=== PATIENT | male | born 1940 | race African-American/Black ===

== ENCOUNTER 2016-09-10 12:58 | Inpatient (IN) | payer OTHER, MEDICARE ==
[2016-09-10] VITALS (9 sets, daily range): BP systolic 129–180; BP diastolic 64–88; PULSE 68–106; RESP 16–18; TEMP 97.6–98.1; O2SAT 97–100
[~2016-09-10] VITALS: Ht 177.8 cm; Wt 100.0 kg
[~2016-09-10 12:58] MED LIST: ADVAI250I INH; ALBU1AER INH; COZA100T PO; GABA300C3 PO; INSU100V2 SQ; METF850T PO; METO25 PO; PRED20 PO; TERA10CA3 PO; ZOCO40TA PO
--- NOTE | 2016-09-10 13:35 | PD ---
HPI Chief Complaint: Neuro Symptoms/ Deficits Time Seen by Provider: 13:35 Travel History International Travel<30 days: No Contact w/Intl Traveler<30days: No Traveled to known affect area: No History of Present Illness HPI 76-year-old male presents to the emergency department for evaluation of left leg weakness that started this morning upon awakening. He also states that he had left leg weakness 3 days ago as well, but resolved on its own. He denies any headache or visual changes. He denies any neck pain or back pain. He denies any chest pain. Reports chronic shortness of breath for over 3 months. He is currently seeing his director sales support, Dr. Mills for this. He denies any abdominal pain. No vomiting. Patient states he has trouble angulated contusion left leg weakness. He denies he lost sensation. Patient has a history of COPD, hypertension, hyperlipidemia, diabetes. He denies any history of CVA or TIA. PFSH Past Medical History Arthritis: No Asthma: Yes Autoimmune Disease: No Anxiety: No Depression: No Heart Rhythm Problems: No Cancer: No Cardiovascular Problems: No High Cholesterol: Yes Chest Pain: No Congestive Heart Failure: No COPD: No Cerebrovascular Accident: No Diabetes: Yes Endocrine: Yes GERD: No Hepatitis: No Hiatal Hernia: No Hypertension: Yes Immune Disorder: No Kidney Stones: No Musculoskeletal: Yes (ARTHRITIS, S/P LUMBAR SX) Neurologic: Yes (neuropathy bilateral hands ) Psychiatric: No Reproductive: No Respiratory: Yes Migraines: No Renal Failure: No Seizures: No Sickle Cell Disease: No Sleep Apnea: No Thyroid Disease: No Ulcer: No PNEUMOCCOCAL Vaccine (Year): 1 Past Surgical History Abdominal Surgery: Yes (CHOLECYSTECTOMY) AICD: No Body Medical Devices: PENILE PUMP Cardiac Surgery: No Cholecystectomy: Yes Ear Surgery: No Endocrine Surgery: No Eye Surgery: No Genitourinary Surgery: Yes (PENILE PUMP IMPL.) Gynecologic Surgery: No Joint Replacement: No Neurologic Surgery: Yes (KYPHOPLASTY (?)) Oral Surgery: No Pacemaker: No Thoracic Surgery: No Other Surgery: Yes Social History Alcohol Use: No Tobacco Use: No Substance Use: No Allergies-Medications (Allergen,Severity, Reaction): Coded Allergies: No Known Allergies (Verified , 09/10/16) Reported Meds & Prescriptions Reported Meds & Active Scripts Active Reported Zocor (Simvastatin) 40 Mg Tab 40 Mg PO DAILY Terazosin (Terazosin HCl) 10 Mg Cap 10 Mg PO HS Proair Hfa 8.5 GM Inh (Albuterol Sulfate) 90 Mcg/Act Aer 1 Puff INH Q4H PRN 108 mcg/actuation Metoprolol Tartrate 25 Mg Tab 25 Mg PO BID Metformin (Metformin HCl) 850 Mg Tab 850 Mg PO TIDPC With meals Losartan (Losartan Potassium) 100 Mg Tab 100 Mg PO DAILY Humulin R Inj (Insulin Human Regular) 1,000 Unit/10 Ml Vial 1 Units SQ ONCE Gabapentin 300 Mg Cap 300 Mg PO HS Aspirin 81 Mg Tabdr 81 Mg PO DAILY Advair Diskus Inh (Fluticasone-Salmeterol Inh) 100-50 Mcg/Blist Aer 1 Puff INH BID Rinse mouth after use. Review of Systems Except as stated in HPI: all other systems reviewed are Neg Physical Exam Narrative GENERAL: Well-developed well-nourished elderly male patient, afebrile. Gait is unsteady. SKIN: Warm and dry. HEAD: Normocephalic. Atraumatic. EYES: No scleral icterus. No injection or drainage. PERRLA. EOMI intact. ENT: Mucosa pink and moist. No erythema or exudates. No uvular edema. No uvular , palatal, or tonsillar deviation. Airway patent. Nasal turbinates appear normal without nasal blood, purulent drainage or septal hematoma. Bilateral tympanic membranes are clear without erythema or perforation. NECK: Supple, trachea midline. No JVD or lymphadenopathy. CARDIOVASCULAR: Regular rate and rhythm without murmurs, gallops, or rubs. RESPIRATORY: Breath sounds equal bilaterally. No accessory muscle use. Lungs sounds are clear to auscultation. GASTROINTESTINAL: Abdomen soft, non-tender, nondistended. MUSCULOSKELETAL: No cyanosis, or edema. Bilateral upper extremity strength 5/ 5. Left lower external strength 4/5, right lower ward with strength 5/5. All extremities are neurovascularly intact. BACK: Nontender without obvious deformity. No CVA tenderness. No midline spinal tenderness. NEUROLOGICAL: Awake and alert. Cranial nerves II through XII intact. Motor and sensory grossly within normal limits. Five out of 5 muscle strength in all muscle groups. Normal speech. Data Data Last Documented VS Vital Signs Date Time Temp Pulse Resp B/P Pulse Ox O2 Delivery O2 Flow Rate FiO2 09/10/16 13:48 148/65 100 09/10/16 13:39 89 16 Room Air 09/10/16 13:00 97.9 Orders Electrocardiogram (09/10/16 13:32) Complete Blood Count With Diff (09/10/16 13:32) Comprehensive Metabolic Panel (09/10/16 13:32) Ckmb (Isoenzyme) Profile (09/10/16 13:32) Troponin I (09/10/16 13:32) Act Partial Throm Time (Ptt) (09/10/16 13:32) Prothrombin Time / Inr (Pt) (09/10/16 13:32) Urinalysis - C+S If Indicated (09/10/16 13:32) Ct Brain W/O Iv Contrast(Rout) (09/10/16 13:32) Ecg Monitoring (09/10/16 13:32) Iv Access Insert/Monitor (09/10/16 13:32) Oximetry (09/10/16 13:32) Sodium Chloride 0.9% Flush (Ns Flush) (09/10/16 13:45) CKMB (09/10/16 14:20) CKMB% (09/10/16 14:20) Labs Laboratory Tests Test 09/10/16 09/10/16 14:20 14:40 White Blood Count 8.0 TH/MM3 Red Blood Count 4.07 MIL/MM3 Hemoglobin 11.0 GM/DL Hematocrit 33.8 % Mean Corpuscular Volume 83.1 FL Mean Corpuscular Hemoglobin 27.1 PG Mean Corpuscular Hemoglobin 32.6 % Concent Red Cell Distribution Width 16.2 % Platelet Count 212 TH/MM3 Mean Platelet Volume 8.9 FL Neutrophils (%) (Auto) 70.6 % Lymphocytes (%) (Auto) 15.2 % Monocytes (%) (Auto) 9.7 % Eosinophils (%) (Auto) 3.8 % Basophils (%) (Auto) 0.7 % Neutrophils # (Auto) 5.7 TH/MM3 Lymphocytes # (Auto) 1.2 TH/MM3 Monocytes # (Auto) 0.8 TH/MM3 Eosinophils # (Auto) 0.3 TH/MM3 Basophils # (Auto) 0.1 TH/MM3 CBC Comment DIFF FINAL Differential Comment Prothrombin Time 10.7 SEC Prothromb Time International 1.0 RATIO Ratio Activated Partial 24.9 SEC Thromboplast Time Sodium Level 138 MEQ/L Potassium Level 4.0 MEQ/L Chloride Level 101 MEQ/L Carbon Dioxide Level 26.4 MEQ/L Anion Gap 11 MEQ/L Blood Urea Nitrogen 14 MG/DL Creatinine 1.59 MG/DL Estimat Glomerular Filtration 51 ML/MIN Rate Random Glucose 148 MG/DL Calcium Level 8.6 MG/DL Total Bilirubin 0.7 MG/DL Aspartate Amino Transf 22 U/L (AST/SGOT) Alanine Aminotransferase 33 U/L (ALT/SGPT) Alkaline Phosphatase 66 U/L Total Creatine Kinase 764 U/L Creatine Kinase MB 9.7 NG/ML Creatine Kinase MB % 1.3 % Troponin I 0.02 NG/ML Total Protein 7.2 GM/DL Albumin 3.5 GM/DL Urine Color YELLOW Urine Turbidity CLEAR Urine pH 5.0 Urine Specific [place] 1.014 Urine Protein NEG mg/dL Urine Glucose (UA) NEG mg/dL Urine Ketones NEG mg/dL Urine Occult Blood NEG Urine Nitrite NEG Urine Bilirubin NEG Urine Urobilinogen LESS THAN 2.0 MG/DL Urine Leukocyte Esterase NEG Urine RBC LESS THAN 1 /hpf Urine WBC 1 /hpf Urine Hyaline Casts 6 /lpf Urine Mucus FEW /lpf Microscopic Urinalysis Comment CULT NOT INDICATED MDM Medical Decision Making Medical Screen Exam Complete: Yes Emergency Medical Condition: Yes Medical Record Reviewed: Yes Interpretation(s) Last Impressions Head CT 09/10/16 1332 Signed Impressions: Service Date/Time: Saturday, September 10, 2016 13:57 - CONCLUSION: Sinus mucosal disease. Minimal periventricular white matter disease. Jackson Gipson MD Differential Diagnosis TIA versus CVA versus electrolyte abnormality versus ACS versus cardiac arrhythmia Narrative Course 76-year-old male presents to the emergency department for evaluation of left leg weakness that started this morning. He states it was present upon awakening. He also had a 3 days ago which resolved on its own. EKG is ordered and pending. CT of the brain is ordered and pending. CBC, CMP, CK, troponin, PTT, PT/INR, UA are ordered and pending. EKG shows SR, HR 83. CT of the brain shows Sinus mucosal disease. Minimal periventricular white matter disease. CBC shows no acute abnormalities. CMP is of a creatinine a 1.59, glucose 148. CK is 764, CK MB is 9.7. Troponin is 0.02. Coags show no acute abnormality. UA shows no evidence of acute infection. [facility] is paged for admission. Dr. Nichole accepted admission. Diagnosis Primary Impression: TIA (transient ischemic attack) Qualified Code: G45.9 - Transient cerebral ischemia, unspecified type Admitting Information Admitting Physician Requests: Dolly Cary Sep 10, 2016 13:35
--- NOTE | 2016-09-10 13:41 | PD ---
Data Data Last Documented VS Vital Signs Date Time Temp Pulse Resp B/P Pulse Ox O2 Delivery O2 Flow Rate FiO2 09/10/16 13:00 97.9 106 18 129/64 97 Room Air Orders Electrocardiogram (09/10/16 13:32) Complete Blood Count With Diff (09/10/16 13:32) Comprehensive Metabolic Panel (09/10/16 13:32) Ckmb (Isoenzyme) Profile (09/10/16 13:32) Troponin I (09/10/16 13:32) Act Partial Throm Time (Ptt) (09/10/16 13:32) Prothrombin Time / Inr (Pt) (09/10/16 13:32) Urinalysis - C+S If Indicated (09/10/16 13:32) Ct Brain W/O Iv Contrast(Rout) (09/10/16 13:32) Ecg Monitoring (09/10/16 13:32) Iv Access Insert/Monitor (09/10/16 13:32) Oximetry (09/10/16 13:32) Sodium Chloride 0.9% Flush (Ns Flush) (09/10/16 13:45) MDM Supervised Visit with NIK: Yes Narrative Course I, Dr. Segundo, have reviewed the advance practice practioner's documentation and am in agreement, met with the patient face to face, made the diagnosis, and the medical decision making was done by me. *My assessment and Findings: Pleasant 76-year-old male with history of HTN, HLD , DM here with complaint of left leg weakness. Patient had an episode approximately one week ago for one hour or less of left leg weakness that resolved spontaneously. Patient woke up this morning with left-sided leg weakness. He has not had any other neurologic symptoms, word-finding difficulties, speech, etc. Denies a history of CVA or TIA. On examination cranial nerves intact. Strength of bilateral upper, is a right lower extremity intact. Left lower extremity is weak, he is able lift this off the bed area there is no drift, but he is unsteady and slightly ataxic with the left leg. Distal sensation and pulses are intact. Speech is intact. Highly suspicious for TIA versus CVA. Less likely peripheral neuropathy, left to light abnormality. Will obtain EKG, laboratory workup, CT of the brain and admit for TIA versus CVA workup. Rosetta Segundo MD Sep 10, 2016 13:40
[2016-09-10] MEDS ORDERED: SODIUM CHLORIDE 0.9% FLUSH 5 ML FLUSH IVF PRN ×2 (13:45→16:00)
--- NOTE | 2016-09-10 14:04 | RADRPT ---
EXAM DATE/TIME: 09/10/2016 13:57 [facility] COMPARISON: No previous studies available for comparison. INDICATIONS : Weakness. RADIATION DOSE: 47.34 CTDIvol (mGy) MEDICAL HISTORY : Hypertension. Neuropathy. SURGICAL HISTORY : Kyphoplasty. ENCOUNTER: Initial ACUITY: 3 days PAIN SCALE: 0/10 LOCATION: cranial TECHNIQUE: Multiple contiguous axial images were obtained of the head. Using automated exposure control and adj ustment of the mA and/or kV according to patient size, radiation dose was kept as low as reasonably a chievable to obtain optimal diagnostic quality images. FINDINGS: No hemorrhage, acute infarct, or mass. Left vertebral artery and bilateral internal carotid artery ca lcifications are noted. There is mild periventricular white matter disease. Ethmoid air cell opacific ation and mucosal thickening in the maxillary sinuses are identified. No fractures. CONCLUSION: Sinus mucosal disease. Minimal periventricular white matter disease. Jackson Gipson MD on September 10, 2016 at 14:02 Board Certified Radiologist. This report was verified electronically.
[2016-09-10 14:43] LABS: AUTOMATED NEUTROPHIL # 5.7 TH/MM3 (1.8-7.7); BASOPHIL # 0.1 TH/MM3 (0-0.2); BASOPHIL % 0.7 % (0.0-2.0); EOSINOPHIL # 0.3 TH/MM3 (0-0.4); EOSINOPHIL % 3.8 % (0.0-4.0); HEMATOCRIT 33.8 % (39.0-51.0); HEMO FLAGS DIFF FINAL; LYMPH % 15.2 % (9.0-44.0); LYMPHOCYTE # 1.2 TH/MM3 (1.0-4.8); MEAN CELL VOLUME 83.1 FL (80.0-100.0); MEAN CORPUSCULAR HEMOGLOBIN 27.1 PG (27.0-34.0); MEAN CORPUSCULAR HGB CONC 32.6 % (32.0-36.0); MONO % 9.7 % (0.0-8.0); NEUT % 70.6 % (16.0-70.0); PLATELET COUNT 212 TH/MM3 (150-450); RED BLOOD COUNT 4.07 MIL/MM3 (4.50-5.90); RED CELL DISTRIBUTION WIDTH 16.2 % (11.6-17.2)
[2016-09-10 14:53] LABS: APTT (PATIENT) 24.9 SEC (24.3-30.1); PROTHROMBIN TIME - PATIENT 10.7 SEC (9.8-11.6)
[2016-09-10 15:07] LABS: ANION GAP 11 MEQ/L (5-15); AST (GOT) 22 U/L (15-37); BICARBONATE 26.4 MEQ/L (21.0-32.0); BLOOD UREA NITROGEN 14 MG/DL (7-18); CHLORIDE 101 MEQ/L (98-107); GLOMERULAR FILTRATION RATE 51 ML/MIN (>89); SODIUM (NA) 138 MEQ/L (136-145)
[2016-09-10 15:12] LABS: ALKALINE PHOSPHATASE 66 U/L (45-117); ALT (GPT) 33 U/L (12-78); CREATINE KINASE 764 U/L (39-308); TOTAL BILIRUBIN ADULT 0.7 MG/DL (0.2-1.0)
[2016-09-10 15:19] LABS: BLOOD, URINE NEG (NEG); COMMENT (UR) CULT NOT INDICATED; CULTURE IF INDICATED CULT NOT INDICATED; GLUCOSE,URINE NEG (NEG); HYALINE CAST, URINE 6 /lpf (RARE); KETONE, URINE NEG (NEG); MUCUS URINE FEW /lpf (OCC); NITRITE,URINE NEG (NEG); URINE COLOR YELLOW (YELLW/STRAW)
[2016-09-10 15:24] LABS: CKMB 9.7 NG/ML (0.5-3.6)
[2016-09-10] MEDS ORDERED: ALBUAER3 INH (15:39)
[2016-09-10] MEDS ORDERED: ZOCO40TA PO (15:39)
[2016-09-10] MEDS ORDERED: METO25TA3 PO (15:39)
[2016-09-10] MEDS ORDERED: GABA300C5 PO (15:39)
[2016-09-10] MEDS ORDERED: INSU100V2 SQ (15:39)
[2016-09-10] MEDS ORDERED: ADVA100A INH (15:39)
[2016-09-10] MEDS ORDERED: METF850T PO (15:39)
[2016-09-10] MEDS ORDERED: LOSA100T PO (15:39)
[2016-09-10] MEDS ORDERED: TERA10CA3 PO (15:39)
[2016-09-10] MEDS ORDERED: ASPI1TAB69 PO (15:39)
[2016-09-10] MEDS ORDERED: DEXTROSE 50% IN WATER 50 ML VIAL(D50) IV PUSH PRN (16:00)
[2016-09-10] MEDS: INSULIN ASPART SUPPLEMENTAL SCALE SQ SCH ×2 (16:00→21:48)
[2016-09-10] MEDS ORDERED: GLUCAGON 1 MG/ML VIAL IM/SQ PRN (16:00)
--- NOTE | 2016-09-10 17:43 | HHI.HP ---
[facility] Primary Care Physician Venu Burgos MD Admission Diagnosis TIA Diagnoses: Chief Complaint: Left lower extremity weakness Travel History International Travel<30 Days: No Contact w/Intl Traveler <30 Da: No Traveled to Known Affected Are: No History of Present Illness This is a pleasant gentleman with a past medical history which includes hypertension, hyperlipidemia, diabetes mellitus on insulin and pills, asthma/COPD, erectile dysfunction status post penile implant and bilateral lower extremity neuropathy. Patient presents to the emergency department for left lower extremity weakness. Patient reports 2 days ago after driving to [employer] and back he got out of his car and noted his left leg was weakness. He walked around for a, "little while," (unable to give exact time) and the weakness resolved with movement. Patient woke up this morning with left lower extremity weakness he was able to get himself dressed ready then went to voodoo. After sitting at voodoo noticed the weakness was worse. Patient had to have assistance to ambulate. Therefore, patient came to the emergency department for further evaluation and treatment. Patient reports that as he has been laying in the stretcher moving his leg the weakness is decreasing. Although on exam left lower extremity is 4 out of 5 and the right lower extremity 5 out of 5 in strength. Patient denies visual changes headaches facial asymmetry upper extremity weakness slurred speech palpitations chest pain and nausea vomiting diarrhea constipation fevers or chills. Review of Systems Other All other systems reviewed and negative except as mentioned in history of present illness. Past Family Social History Past Medical History hypertension, hyperlipidemia, diabetes mellitus on insulin and pills, asthma/ COPD, erectile dysfunction and bilateral lower extremity neuropathy Past Surgical History Lumbar disc fusion, cholecystectomy, penile implant, hip replacement Reported Medications Zocor (Simvastatin) 40 Mg Tab 40 Mg PO DAILY Terazosin (Terazosin HCl) 10 Mg Cap 10 Mg PO HS Proair Hfa 8.5 GM Inh (Albuterol Sulfate) 90 Mcg/Act Aer 1 Puff INH Q4H PRN 108 mcg/actuation Metoprolol Tartrate 25 Mg Tab 25 Mg PO BID Metformin (Metformin HCl) 850 Mg Tab 850 Mg PO TIDPC With meals Losartan (Losartan Potassium) 100 Mg Tab 100 Mg PO DAILY Humulin R Inj (Insulin Human Regular) 1,000 Unit/10 Ml Vial 1 Units SQ ONCE Gabapentin 300 Mg Cap 300 Mg PO HS Aspirin 81 Mg Tabdr 81 Mg PO DAILY Advair Diskus Inh (Fluticasone-Salmeterol Inh) 100-50 Mcg/Blist Aer 1 Puff INH BID Rinse mouth after use. Allergies: Coded Allergies: No Known Allergies (Verified , 09/10/16) Active Ordered Medications Current Medications Medications (Trade) Dose Ordered Sig/Guillermo Route Start Time Stop Time Status Last Admin (NS Flush) 2 ml BID IVF 09/10/16 21:00 (NS Flush) 2 ml UNSCH PRN IVF 09/10/16 16:00 (Aspirin Chew) 81 mg DAILY PO 09/11/16 09:00 (D50w (Vial) Inj) 25 ml UNSCH PRN IV PUSH 09/10/16 16:00 (Glucagon Inj) 1 mg UNSCH PRN IM/SQ 09/10/16 16:00 Family History Both mother and father had heart disease also had a brother with had ND Social History Denies EtOH use tobacco use or illicit drug use Physical Exam Vital Signs Vital Signs Date Time Temp Pulse Resp B/P Pulse Ox O2 Delivery O2 Flow Rate FiO2 09/10/16 16:12 85 18 138/64 99 09/10/16 13:48 148/65 100 09/10/16 13:39 89 16 148/65 100 Room Air 09/10/16 13:00 97.9 106 18 129/64 97 Room Air Physical Exam GENERAL: This is a well-nourished, well-developed patient, in no apparent distress. SKIN: No rashes, ecchymoses or lesions. Cool and dry. HEAD: Atraumatic. Normocephalic. No temporal or scalp tenderness. EYES: Pupils equal round and reactive. Extraocular motions intact. No scleral icterus. No injection or drainage. ENT: Nose without bleeding, purulent drainage or septal hematoma. Throat without erythema, tonsillar hypertrophy or exudate. Uvula midline. Airway patent. NECK: Trachea midline. No JVD or lymphadenopathy. Supple, nontender, no meningeal signs. CARDIOVASCULAR: Regular rate and rhythm without murmurs, gallops, or rubs. RESPIRATORY: Clear to auscultation. Breath sounds equal bilaterally. No wheezes , rales, or rhonchi. GASTROINTESTINAL: Abdomen large soft, non-tender. No guarding. MUSCULOSKELETAL: Extremities without clubbing, cyanosis, or edema. No joint tenderness, effusion, or edema noted. No calf tenderness. Negative Homans sign bilaterally. NEUROLOGICAL: Awake and alert. Motor and sensory grossly within normal limits, with the exception of left lower extremity. Five out of 5 muscle strength in all muscle groups, with the exception of left lower extremity which is 4 out of 5 muscle strength. Normal speech. Laboratory Laboratory Tests Test 09/10/16 09/10/16 14:20 14:40 White Blood Count 8.0 Red Blood Count 4.07 Hemoglobin 11.0 Hematocrit 33.8 Mean Corpuscular Volume 83.1 Mean Corpuscular Hemoglobin 27.1 Mean Corpuscular Hemoglobin 32.6 Concent Red Cell Distribution Width 16.2 Platelet Count 212 Mean Platelet Volume 8.9 Neutrophils (%) (Auto) 70.6 Lymphocytes (%) (Auto) 15.2 Monocytes (%) (Auto) 9.7 Eosinophils (%) (Auto) 3.8 Basophils (%) (Auto) 0.7 Neutrophils # (Auto) 5.7 Lymphocytes # (Auto) 1.2 Monocytes # (Auto) 0.8 Eosinophils # (Auto) 0.3 Basophils # (Auto) 0.1 CBC Comment DIFF FINAL Differential Comment Prothrombin Time 10.7 Prothromb Time International 1.0 Ratio Activated Partial 24.9 Thromboplast Time Sodium Level 138 Potassium Level 4.0 Chloride Level 101 Carbon Dioxide Level 26.4 Anion Gap 11 Blood Urea Nitrogen 14 Creatinine 1.59 Estimat Glomerular Filtration 51 Rate Random Glucose 148 Calcium Level 8.6 Total Bilirubin 0.7 Aspartate Amino Transf 22 (AST/SGOT) Alanine Aminotransferase 33 (ALT/SGPT) Alkaline Phosphatase 66 Total Creatine Kinase 764 Creatine Kinase MB 9.7 Creatine Kinase MB % 1.3 Troponin I 0.02 Total Protein 7.2 Albumin 3.5 Urine Color YELLOW Urine Turbidity CLEAR Urine pH 5.[address] 1.014 Urine Protein NEG Urine Glucose (UA) NEG Urine Ketones NEG Urine Occult Blood NEG Urine Nitrite NEG Urine Bilirubin NEG Urine Urobilinogen LESS THAN 2.0 Urine Leukocyte Esterase NEG Urine RBC LESS THAN 1 Urine WBC 1 Urine Hyaline Casts 6 Urine Mucus FEW Microscopic Urinalysis Comment CULT NOT INDICATED Result Diagram: 09/10/16 1420 09/10/16 1420 Imaging Last Impressions Head CT 09/10/16 1332 Signed Impressions: Service Date/Time: Saturday, September 10, 2016 13:57 - CONCLUSION: Sinus mucosal disease. Minimal periventricular white matter disease. Jackson Gipson MD Assessment and Plan Assessment and Plan This is a pleasant gentleman with a past medical history which includes hypertension, hyperlipidemia, diabetes mellitus on insulin and pills, asthma/COPD, erectile dysfunction and bilateral lower extremity neuropathy. Patient presents to the emergency department for left lower extremity weakness. Focal deficit left lower extremity weakness rule out TIA/lacunar CVA CT of the head reviewed by myself as well as Dr. Nichole no acute findings- sinus mucosal disease minimal periventricular white matter disease MRI ordered and pending, ultrasound bilateral carotid arteries pending Patient had outpatient 2-D echocardiogram scheduled this coming Sunday Physical therapy Continuous telemetry monitoring Consult neurology Aspirin 81 mg daily continue Zocor Allow permissive hypertension Diabetes mellitus hold metformin Accu-Cheks before meals at bedtime with low-dose sliding scale insulin coverage Hypertension- continue metoprolol 25 mg BID and Terazosin 10mg daily, but will hold losartan in light of elevated creatinine Acute kidney injury - creatinine 1.59 baseline around 1.0-1.2 Elevated CK at 764 Hold losartan Encouraged by mouth fluid intake Recheck in a.m. Hyperlipidemia continue Zocor Asthma last COPD continue Symbicort and add duo nebs as needed for shortness of breath/wheezing DVT prophylaxis with SCDs Discussed with patient daughter is at bedside, RN and ER provider Written by Rosey Major, acting as scribe for Dr. Nichole on 09/10/16 at 17: 42. The documentation accurately reflects the work performed [id number] by , Benton Nichole D.O on 09/10/16 at 17:42. Physician Certification 2 Midnight Certification Type: Admission for Inpatient Services Order for Inpatient Services The services are ordered in accordance with Medicare regulations or non- Medicare payer requirements, as applicable. In the case of services not specified as inpatient-only, they are appropriately provided as inpatient services in accordance with the 2-midnight benchmark. Estimated LOS (days): 3 days is the estimated time the patient will need to remain in the hospital, assuming treatment plan goals are met and no additional complications. Post-Hospital Plan: Home Rosey Major Sep 10, 2016 17:43 Екатерина Nichole DO Sep 10, 2016 22:48
--- NOTE | 2016-09-10 19:51 | RADRPT ---
EXAM DATE/TIME: 09/10/2016 18:34 [facility] COMPARISON: No previous studies available for comparison. INDICATIONS : Transient ischemic attack. MEDICAL HISTORY : Hypercholesterolemia. Hypertension. Neuropathy. Asthma. Erectile dysfunction. Arthritis. Diabetes. SURGICAL HISTORY : Cholecystectomy. Kyphoplasty. Penile pump implant. Hip surgery. Hand surgery. ENCOUNTER: Initial ACUITY: 1 day PAIN SCORE: 0/10 LOCATION: Bilateral neck PEAK SYSTOLIC VELOCITIES (cm/sec): ICA/CCA RATIO: Right: 0.7 Left: 0.8 ICA: Right: 89 Left: 92 CCA: Right: 127 Left: 115 ECA: Right: 112 Left: 89 VERTEBRAL: Right: 62 antegrade Left: 102 antegrade Elevated flow velocities and ICA/CCA ratios have been found to correlate with increased degrees of vessel stenosis, calculated as percentage of diameter relative to a normal segment of distal ICA/CCA FINDINGS: RIGHT CAROTID: Trace plaque seen of the bulb and proximal internal carotid artery. LEFT CAROTID: Mild plaque seen in the bulb and proximal internal carotid artery. VERTEBRAL ARTERIES: Antegrade flow is seen in both vertebral arteries. MISCELLANEOUS: None. CONCLUSION: Bilateral bifurcation atherosclerotic plaque, trace on the right and mild on the left. No hemodynamic ally significant narrowing on either side. Geovanny Ramirez MD on September 10, 2016 at 19:48 Board Certified Radiologist. This report was verified electronically.
[2016-09-10] MEDS ORDERED: TERAZOSIN HCL 5 MG CAP PO SCH (21:00)
[2016-09-10] MEDS ORDERED: GABAPENTIN 300 MG CAP PO SCH (21:00)
[2016-09-10] MEDS: BUDESONIDE-FORMOTEROL 80/4.5 MCG INHALER INH SCH (21:31)
[2016-09-10] MEDS: METOPROLOL TARTRATE 25 MG TAB PO SCH (21:31)
[2016-09-10] MEDS: SODIUM CHLORIDE 0.9% FLUSH 5 ML FLUSH IVF SCH (21:31)
--- NOTE | 2016-09-10 22:02 | MB ---
cc: TE LEMUS MD DATE OF CONSULTATION 09/10/2016 REASON FOR CONSULTATION Left lower extremity weakness. HISTORY OF PRESENT ILLNESS A 76-year-old -Wel[place] male with past medical history of hypertension, hyperlipidemia, diabetes mellitus on insulin and oral hypoglycemic agents, asthma, COPD, erectile dysfunction status post penile implant and bilateral lower extremity neuropathy. The patient presents to the emergency department at [facility] the main hospital for left lower extremity weakness that he reports started two days ago after driving to [place] sitting for two hours in a car. He thought that he had left weakness when he got out of the car, he walked around and then in two hours he thought the weakness had resolved, and he denies any weakness in the left upper extremity, the left side of the face, slurred speech, disorientation, numbness or tingling of the left lower extremity. This morning he woke up with left lower extremity weakness as well similar to the previous episode. He was able to get himself dressed and went to [facility] and after sitting in [place] he noted that the weakness was worse. He denies any numbness or tingling in the left lower extremity. He denies any upper extremity weakness, facial droop or difficulty in speech. Until the time when I examined him and I assessed him he still thinks that he has weakness and it is not back to normal. The patient is on aspirin 81 mg daily. REVIEW OF SYSTEMS A 12-point review of systems is negative except for what is stated in the HPI. PAST MEDICAL HISTORY 1. Hypertension. 2. Hyperlipidemia. 3. Diabetes mellitus. 4. Asthma. 5. Chronic obstructive pulmonary disease. 6. Erectile dysfunction. 7. Peripheral neuropathy. PAST SURGICAL HISTORY 1. Lumbar disc diffusion. 2. Cholecystectomy. 3. Penile implant. 4. Hip replacement. MEDICATIONS 1. Zocor. 2. Terazosin. 3. ProAir. 4. Metoprolol. 5. Metformin. 6. Losartan. 7. Humulin insulin. 8. Gabapentin. 9. Aspirin 81. 10. Advair Diskus. ALLERGIES NO KNOWN ALLERGIES. FAMILY HISTORY Mother and father had heart disease but denies any history of stroke. SOCIAL HISTORY Denies ethanol use, tobacco or recreational drug abuse. PHYSICAL EXAMINATION GENERAL: Well-nourished, well-developed in no apparent distress. Good historian. HEENT: Atraumatic, normocephalic. Intact vision, intact hearing. NECK: Supple. No lymphadenopathy. Nontender. No carotid bruit. CARDIOVASCULAR: Regular rate and rhythm without murmurs. LUNGS: Clear to auscultation with no wheezes. MUSCULOSKELETAL: Extremities without cyanosis, clubbing or edema. Able to move all extremities. NEUROLOGICAL: Awake, alert, oriented to time, person and place. Intact memory. Normal speech. Normal speech content. Cranial nerves II-XII are grossly intact. Motor system examination 5/5 bilateral, symmetrical throughout, bilateral upper extremities, right lower extremity 5/5. Left lower extremity 5-/5 left hip flexion and left foot dorsiflexion. Cerebellar function intact bilateral and symmetrical. LABORATORY DATA White blood cells 8.0, hemoglobin 11, MCV 83.1, platelets 212. INR 1.0. Sodium 138, potassium 4.0, chloride 101, anion gap 11, BUN 14, creatinine 1.59, glucose 148, calcium 8.6, AST 22, ALT 33. Total creatinine kinase 764. Alkaline phosphatase 66. Troponin 0.02.Albumin 3.5. IMAGING - Head CT scan minimal periventricular white matter disease. DIAGNOSTIC IMPRESSION 1. Transient ischemic attack versus ischemic stroke. 2. Questionable lumbar radiculopathy left, less likely, given no history of radicular pain, however, will pursue the following tests. PLAN 1. Neuro checks q.4h. 2. Continue aspirin 81 milligrams. 3. MRI brain without contrast. 4. Carotid ultrasound. 5. Echo. 6. Telemetry. 7. Deep venous thrombosis prophylaxis. 8. Gastrointestinal prophylaxis. 9. Lumbar spine MRI without contrast. Thank you for the opportunity to participate in the care of your patient. MD PHAN Hernandez/NIALL /5:48 PM /9:47 PM EDYTA
[2016-09-11 03:47] VITALS: BP 132/76; PULSE 61; RESP 16; TEMP 98.3; O2SAT 100
[2016-09-11 05:08] LABS: HDL CHOLESTEROL 57.4 MG/DL (40.0-60.0)
[2016-09-11] MEDS: INSULIN ASPART SUPPLEMENTAL SCALE SQ SCH ×3 (06:09→16:00)
[2016-09-11 07:15] VITALS: BP 147/81; PULSE 67; RESP 18; TEMP 97.6; O2SAT 100
[2016-09-11 08:00] VITALS: PULSE 60
[2016-09-11] MEDS ORDERED: LORazepam 2 MG/ML VIAL IV PUSH ONE (08:30)
--- NOTE | 2016-09-11 08:46 | HHI.PR ---
Subjective Remarks Follow-up for left lower extremity weakness. Patient is currently doing well. He reports improvement of his left lower extremity weakness. Denies any chest pain, shortness of breath, fever or chills. Waiting for MRI brain this morning. Objective Vitals Vital Signs Date Time Temp Pulse Resp B/P Pulse Ox O2 Delivery O2 Flow Rate FiO2 09/11/16 07:15 97.6 67 18 147/81 100 09/11/16 03:47 98.3 61 16 132/76 100 09/10/16 23:40 98.1 71 16 156/73 100 09/10/16 21:28 97.7 73 16 175/84 98 09/10/16 20:00 68 09/10/16 19:33 97.6 71 16 180/82 100 09/10/16 19:01 89 16 154/88 97 Room Air 09/10/16 16:12 85 18 138/64 99 09/10/16 13:48 148/65 100 09/10/16 13:39 89 16 148/65 100 Room Air 09/10/16 13:00 97.9 106 18 129/64 97 Room Air I/O 09/10/16 09/10/16 09/10/16 09/11/16 09/11/16 09/11/16 06:59 14:59 22:59 06:59 14:59 22:59 Intake Total 360 ml Balance 360 ml Intake Oral 360 ml # Voids 1 Result Diagram: 09/10/16 1420 09/10/16 1420 Imaging Last Impressions Head CT 09/10/16 1332 Signed Impressions: Service Date/Time: Saturday, September 10, 2016 13:57 - CONCLUSION: Sinus mucosal disease. Minimal periventricular white matter disease. Jackson Gipson MD Carotid Artery Ultrasound 09/10/16 0000 Signed Impressions: Service Date/Time: Saturday, September 10, 2016 18:34 - CONCLUSION: Bilateral bifurcation atherosclerotic plaque, trace on the right and mild on the left. No hemodynamically significant narrowing on either side. Geovanny Ramirez MD Objective Remarks GENERAL: Alert, oriented 3, NAD SKIN: Warm and dry. HEAD: Normocephalic. EYES: No scleral icterus. No injection or drainage. NECK: Supple, trachea midline. No JVD or lymphadenopathy. CARDIOVASCULAR: Regular rate and rhythm without murmurs, gallops, or rubs. RESPIRATORY: Breath sounds equal bilaterally. No accessory muscle use. GASTROINTESTINAL: Abdomen soft, non-tender, nondistended. MUSCULOSKELETAL: No cyanosis, or edema. BACK: Nontender without obvious deformity. No CVA tenderness. Procedures None. A/P Assessment and Plan This is a pleasant 76 year old gentleman with a past medical history which includes hypertension, hyperlipidemia, diabetes mellitus on insulin and pills, asthma/COPD, erectile dysfunction and bilateral lower extremity neuropathy. Patient presents to the emergency department for left lower extremity weakness. left lower extremity weakness rule out TIA/lacunar CVA CT of the head reviewed by myself as well as Dr. Nichole on 09/10/2016 no acute findings- sinus mucosal disease minimal periventricular white matter disease MRI ordered and pending, ultrasound bilateral carotid arteries show no significant findings. Patient had outpatient 2-D echocardiogram scheduled on 09/13/2016. In patient Echo ordered. However, if MRI is negative, we might discharge patient home and have the echo done outpatient. Physical therapy Continuous telemetry monitoring Consult neurology Aspirin 81 mg daily continue Zocor Diabetes mellitus hold metformin Accu-Cheks before meals at bedtime with low-dose sliding scale insulin coverage Hypertension- continue metoprolol 25 mg BID and Terazosin 10mg daily, but will hold losartan in light of elevated creatinine Hyperlipidemia - total cholesterol 119, LDL 41 HDL 57.4. Continue statin Acute kidney injury - creatinine 1.59 baseline around 1.0-1.2 Elevated CK at 764 Hold losartan Encouraged by mouth fluid intake BMP pending this AM. Asthma last COPD continue Symbicort and add duo nebs as needed for shortness of breath/wheezing Full code. SCDs. Potential discharge this afternoon after MRI is done. Екатерина Nichole DO Sep 11, 2016 8:46 am
[2016-09-11] MEDS: SODIUM CHLORIDE 0.9% FLUSH 5 ML FLUSH IVF SCH (09:00)
[2016-09-11] MEDS ORDERED: PRAVASTATIN SOD 80 MG TAB PO SCH (09:00)
[2016-09-11] MEDS ORDERED: ASPIRIN 81 MG CHEW TAB PO SCH (09:00)
--- NOTE | 2016-09-11 10:40 | RADRPT ---
EXAM DATE/TIME: 09/11/2016 10:11 [facility] COMPARISON: CT BRAIN W/O CONTRAST, September 10, 2016, 13:57. INDICATIONS : Left leg weakness. MEDICAL HISTORY : Hypertension. Diabetes mellitus type 2. SURGICAL HISTORY : Fusion, lumbar. Cholecystectomy. Carpal tunnel syndrome. hip replacement, penile implant, elbow ENCOUNTER: Subsequent ACUITY: 2 day PAIN SCORE: 0/10 LOCATION: cranial TECHNIQUE: Multiplanar, multisequence MRI of the brain was performed without contrast. FINDINGS: There is a focal area of restricted diffusion in the right basal ganglia in the expected location of the posterior limb right internal capsule. This is characteristic of an acute infarct. There is sligh t increased corresponding flair signal. There is diffuse atrophy and mild periventricular white matte r disease, chronic. There are no signs of hemorrhage. There is circumferential mucosal thickening and secretions in the bilateral maxillary sinuses, and ethmoid air cell mucosal disease. CONCLUSION: Acute infarct right internal capsule. Jackson Gipson MD on September 11, 2016 at 10:38 Board Certified Radiologist. This report was verified electronically.
[2016-09-11] MEDS: METOPROLOL TARTRATE 25 MG TAB PO SCH (10:52)
--- NOTE | 2016-09-11 10:52 | RADRPT ---
EXAM DATE/TIME: 09/11/2016 10:11 [facility] COMPARISON: No previous studies available for comparison. INDICATIONS : Left leg weakness. MEDICAL HISTORY : Hypertension. Diabetes mellitus type 2. SURGICAL HISTORY : Fusion, lumbar. Cholecystectomy. Carpal tunnel syndrome. lt hip replacment, penile implant, elbow ENCOUNTER: Subsequent ACUITY: 2 day PAIN SCORE: 0/10 LOCATION: back TECHNIQUE: Multiplanar multisequence MRI of the lumbar spine was performed without contrast. FINDINGS: The most caudal appearing lumbar vertebra is numbered as L5. The conus is unremarkable. There is diff use disc desiccation. Moderate disc space narrowing at multiple anterior osteophyte formation. L4-5 a nd L5-S1. Left sided posterior micaela and transpedicular screw fixation at L5-S1. Severe bilateral tal inal stenosis. T12-L1: The thecal sac has a normal diameter. No evidence of disc bulge or protrusion. The neural foramina are patent bilaterally. L1-L2: The thecal sac has a normal diameter. No evidence of disc bulge or protrusion. The neural foramina are patent bilaterally. L2-L3: The thecal sac has a normal diameter. No evidence of disc bulge or protrusion. The neural foramina are patent bilaterally. Mild facet and ligamentum flavum hypertrophy. L3-L4: Diffuse disc bulge greatest in the left foraminal and lateral region with mild mass effect on the lef t L3 exiting nerve and L4 nerve roots at the left lateral recess. Mild abutment of the right L3 exiti ng nerve. Moderate facet and ligamentum flavum hypertrophy. Mild right, moderate left foraminal steno sis. L4-L5: Diffuse disc bulge and osteophyte formation with moderate canal stenosis. There is mass effect on the L4 exiting nerves with severe bilateral foraminal stenosis. There is likely impingement on the L5 ne rve roots. L5-S1: This is a postsurgical level. There is no canal stenosis however moderate facet arthropathy and diffu se disc bulging noted with abutment of the L5 exiting nerves seen. Severe bilateral foraminal stenosi s. CONCLUSION: Multilevel degenerative changes are noted as described above greatest at L4-5 and L5-S1. Jackson Gipson MD on September 11, 2016 at 10:47 Board Certified Radiologist. This report was verified electronically.
[2016-09-11] MEDS: BUDESONIDE-FORMOTEROL 80/4.5 MCG INHALER INH SCH (10:53)
[2016-09-11 11:38] VITALS: BP 161/75; PULSE 63; TEMP 96.4; O2SAT 99
[2016-09-11 12:43] LABS: BICARBONATE 28.7 MEQ/L (21.0-32.0)
--- NOTE | 2016-09-11 14:44 | HHI.PR ---
Review/Management Diagnosis Ischemic basal ganglia infarction Likely etiology secondary to long standing hypertension and diabetes Pending ECHO result Plan Neurochecks Q4h Increased Aspirin to 325mg daily, starting 09/12/2016 Tight BP and glycemic control PT/OT, recommendations are appreciated Stable neurologic exam Follow up as outpatient DVT prophylaxis GI Prophylaxis Diagnosis/Plan: Subjective Subjective Comments No acute events reported Patient with no new complaints Mild gradual improvement in the left LE strength MRI revealed a right basal ganglia lacunar stroke CUS with no significant stenosis Active Medications Current Medications Medications (Trade) Dose Ordered Sig/Guillermo Route Start Time Stop Time Status Last Admin (NS Flush) 2 ml BID IVF 09/10/16 21:00 09/10/16 21:31 (NS Flush) 2 ml UNSCH PRN IVF 09/10/16 16:00 (Aspirin Chew) 81 mg DAILY PO 09/11/16 09:00 09/11/16 10:52 (D50w (Vial) Inj) 25 ml UNSCH PRN IV PUSH 09/10/16 16:00 (Glucagon Inj) 1 mg UNSCH PRN IM/SQ 09/10/16 16:00 (Neurontin) 300 mg HS PO 09/10/16 21:00 09/10/16 21:31 (Lopressor) 25 mg BID PO 09/10/16 21:00 09/11/16 10:52 (Hytrin) 10 mg HS PO 09/10/16 21:00 09/10/16 21:31 (Symbicort 80-4.5 Mcg Inh) 1 puff BID INH 09/10/16 21:00 09/11/16 10:53 (Pravachol) 80 mg DAILY PO 09/11/16 09:00 09/11/16 10:52 Allergies Allergies Coded Allergies No Known Allergies (Verified09/10/16) Exam I&O / VS 09/10/16 09/10/16 09/11/16 14:59 22:59 06:59 Intake Total 360 ml Balance 360 ml Intake Oral 360 ml # Voids 1 Vital Signs Date Time Temp Pulse Resp B/P Pulse Ox O2 Delivery O2 Flow Rate FiO2 09/11/16 11:38 96.4 63 161/75 99 09/11/16 07:15 97.6 67 18 147/81 100 09/11/16 03:47 98.3 61 16 132/76 100 09/10/16 23:40 98.1 71 16 156/73 100 09/10/16 21:28 97.7 73 16 175/84 98 09/10/16 20:00 68 09/10/16 19:33 97.6 71 16 180/82 100 09/10/16 19:01 89 16 154/88 97 Room Air 09/10/16 16:12 85 18 138/64 99 Exam Comments GENERAL: Well-nourished, well-developed in no apparent distress. Good historian. HEENT: Atraumatic, normocephalic. Intact vision, intact hearing. NECK: Supple. No lymphadenopathy. Nontender. No carotid bruit. CARDIOVASCULAR: Regular rate and rhythm without murmurs. LUNGS: Clear to auscultation with no wheezes. MUSCULOSKELETAL: Extremities without cyanosis, clubbing or edema. Able to move all extremities. NEUROLOGICAL: Awake, alert, oriented to time, person and place. Intact memory. Normal speech. Normal speech content. Cranial nerves II-XII are grossly intact. Motor system examination 5/5 bilateral, symmetrical throughout, bilateral upper extremities, right lower extremity 5/5. Left lower extremity 5-/5 left hip flexion and left foot dorsiflexion. Cerebellar function intact bilateral and symmetrical. Objective Radiology Results Last [address] 09/10/16 1332 Signed Impressions: Service Date/Time: Saturday, September 10, 2016 13:57 - CONCLUSION: Sinus mucosal disease. Minimal periventricular white matter disease. Jackson Gipson MD Carotid Artery Ultrasound 09/10/16 0000 Signed Impressions: Service Date/Time: Saturday, September 10, 2016 18:34 - CONCLUSION: Bilateral bifurcation atherosclerotic plaque, trace on the right and mild on the left. No hemodynamically significant narrowing on either side. Geovanny Ramirez MD Micro and Labs Laboratory Tests Test 09/10/16 09/11/16 09/11/16 14:40 04:05 11:40 Urine Color YELLOW Urine Turbidity CLEAR Urine pH 5.0 Urine Specific Lipan 1.014 Urine Protein NEG Urine Glucose (UA) NEG Urine Ketones NEG Urine Occult Blood NEG Urine Nitrite NEG Urine Bilirubin NEG Urine Urobilinogen LESS THAN 2.0 Urine Leukocyte Esterase NEG Urine RBC LESS THAN 1 Urine WBC 1 Urine Hyaline Casts 6 Urine Mucus FEW Microscopic Urinalysis Comment CULT NOT INDICATED Triglycerides Level 101 Cholesterol Level 119 LDL Cholesterol 41 HDL Cholesterol 57.4 Cholesterol/HDL Ratio 2.07 Sodium Level 136 Potassium Level 4.0 Chloride Level 100 Carbon Dioxide Level 28.7 Anion Gap 7 Blood Urea Nitrogen 14 Creatinine 1.30 Estimat Glomerular Filtration 65 Rate Random Glucose 225 Calcium Level 8.5 Ashlyn French MD Sep 11, 2016 14:44
[2016-09-11 15:20] VITALS: BP 134/74; PULSE 60; RESP 20; TEMP 98.4; O2SAT 98
[2016-09-11] MEDS ORDERED: ASPI325T PO (15:45)
--- NOTE | 2016-09-11 17:13 | EC ---
Study Study Date:09/11/2016 STUDY CONCLUSIONS SUMMARY - Left ventricle: The cavity size was normal. Wall thickness was normal. Systolic function was normal. The estimated ejection fraction was in the range of 55% to 60%. Wall motion was normal; there were no regional wall motion abnormalities. Doppler parameters are consistent with abnormal left ventricular relaxation (grade 1 diastolic dysfunction). - Aortic valve: Valve area: 1.2cm^2(VTI). Valve area: 1.19cm^2 (Vmax). - Right atrium: The atrium was mildly dilated. - Tricuspid valve: Mild regurgitation. If LV function is below 40, please consider prescribing an ACEI or ARB or document rationale for non-use. PROCEDURE DATA STUDY STATUS: Elective. Procedure: Transthoracic echocardiography. Image quality was good. Scanning was performed from the parasternal, apical, and subcostal acoustic windows. Study completion: The patient tolerated the procedure well. Transthoracic echocardiography. M-mode, complete 2D, complete spectral Doppler, and color Doppler. Height: Height: 70in. Weight: Weight: 219.5lb. Body mass index: BMI: 31.6kg/m^2. Body surface area: BSA: 2.17m^2. Patient status: Inpatient. CARDIAC ANATOMY LEFT VENTRICLE: The cavity size was normal. Wall thickness was normal. Systolic function was normal. The estimated ejection fraction was in the range of 55% to 60%. Wall motion was normal; there were no regional wall motion abnormalities. Doppler parameters are consistent with abnormal left ventricular relaxation (grade 1 diastolic dysfunction). AORTIC VALVE: Trileaflet; normal thickness leaflets. Doppler: Transvalvular velocity was within the normal range. There was no stenosis. No regurgitation. Valve area: 1.2cm^2(VTI). Indexed valve area: 0.55cm^2/m^2 (VTI). Valve area: 1.19cm^2 (Vmax). Indexed valve area: 0.55cm^2/m^2 (Vmax). Mean gradient: 3mm Hg (S). AORTA: Aortic root: The aortic root was normal in size. MITRAL VALVE: Structurally normal valve. Doppler: Transvalvular velocity was within the normal range. There was no evidence for stenosis. Trace regurgitation. LEFT ATRIUM: The atrium was normal in size. RIGHT VENTRICLE: The cavity size was normal. Wall thickness was normal. PULMONIC VALVE: Doppler: Transvalvular velocity was within the normal range. There was no evidence for stenosis. No regurgitation. TRICUSPID VALVE: Structurally normal valve. Doppler: Transvalvular velocity was within the normal range. Mild regurgitation. PULMONARY ARTERY: The main pulmonary artery was normal-sized. Systolic pressure was within the normal range. RIGHT ATRIUM: The atrium was mildly dilated. PERICARDIUM: There was no pericardial effusion. SYSTEMIC VEINS: Inferior vena cava: The vessel was normal in size. Patient weight: 219.5lb _Ejection fraction:_ 65-75% _Fractional shortening:_ 32% up to 5Kg 5-11.5Kg 11.6-22.9Kg 23-45Kg 45-57Kg Aortic Root 7-13 <17 13-22 17-27 17-27 LA diam 6-13 <23 24-38 33-47 37-40 RVID 10-17 7-15 7-15 7-18 8-17 LVIDd 12-22 <32 24-38 33-47 37-40 LVPW 2-4 3-6 5-7 6-8 7-8 IVS 2-4 3-6 5-7 6-8 7-8 BASIC MEASUREMENTS ADULT NORMAL Left ventricle LV internal dimension, ED, chordal *35.9 mm 43-52 level, PLAX LV internal dimension, ES, chordal 26.1 mm 23-38 level, PLAX Fractional shortening, chordal level, *27 % >29 PLAX LV posterior wall thickness, ED 15 mm IVS/LVPW ratio, ED 1 <1.3 Ventricular septum Septal thickness, ED 15 mm Aortic valve Leaflet separation 18 mm 15-26 Aorta Root diameter, ED 33 mm Left atrium Anterior-posterior dimension 32 mm Anterior-posterior dimension index 1.47 cm/m^2 <2.2 Right ventricle RV internal dimension, ED, PLAX *39.2 mm 19-38 BASIC MEASUREMENTS ADULT NORMAL Aortic valve Leaflet separation 18 mm 15-26 DOPPLER MEASUREMENTS ADULT NORMAL Aortic valve Peak velocity, S 121 cm/s Mean velocity, S 86.6 cm/s VTI, S 22.8 cm Mean gradient, S 3 mm Hg Valve area, VTI 1.2 cm^2 Valve area index, VTI 0.55 cm^2/m^2 Valve area, Vmax 1.19 cm^2 Valve area index, Vmax 0.55 cm^2/m^2 Mitral valve Peak E-wave velocity 66.6 cm/s Peak A-wave velocity 95.8 cm/s Deceleration time *236 ms 150-230 Peak E/A ratio 0.7 Tricuspid valve Regurgitant peak velocity 301 cm/s Peak RV-RA gradient, S 36 mm Hg Maximal regurgitant velocity 301 cm/s Pulmonic valve Peak velocity, S 73.5 cm/s LEGEND: Mean values are shown as u=mean value. Asterisk (*) ren values outside specified normal range. Prepared and signed by Logan Tam [id number]
[2016-09-11 17:30] LABS: HEMOGLOBIN A1a 1.2 %; HEMOGLOBIN Ao 83.5 %; HEMOGLOBIN P3 3.7 %
--- NOTE | 2016-09-11 18:35 | EKG ---
Date Performed: 09/10/2016 Time Performed: 14:17:56 PTAGE: 76 years EKG: Sinus rhythm WITH FIRST DEGREE AV BLOCK NONSPECIFIC T-WAVE ABNORMALITY Since previous tracing, no significant suman nge noted ABNORMAL ECG PREVIOUS TRACING : 06/02/2016 15.47 DOCTOR: Gloria Mandujano Interpretating Date/Time 09/11/2016 18:34:37
[2016-09-12] MEDS ORDERED: ASPIRIN 325 MG TAB PO SCH (09:00)
== END 2016-09-11 17:59 | disposition home or self-care (01) | DRG 65 ==
LOC: NEPC 12:58 → NEDA 15:58 → OBSVTOIN 16:47 → NEPGCP 19:19
PROVIDERS: ADMIT Hospitalist; ATTEND Hospitalist
DX: I63.9 Cerebral infarction, unspecified (principal); N17.9 Acute kidney failure, unspecified; J44.9 Chronic obstructive pulmonary disease, unspecified; E11.42 Type 2 diabetes mellitus with diabetic polyneuropathy; I10 Essential (primary) hypertension; E78.5 Hyperlipidemia, unspecified; J45.909 Unspecified asthma, uncomplicated; Z79.4 Long term (current) use of insulin; Z79.82 Long term (current) use of aspirin
CPT/HCPCS: 70450; 70551; 72148; 80048; 80053; 80061; 81001; 82550; 82552; 82948; 83036; 84484; 85025; 85610; 85730; 93005; 93306; 93880; J1815; J2060

== ENCOUNTER 2017-10-07 19:30 | Emergency (ER) | payer MEDICARE, OTHER ==
[~2017-10-07 19:30] MED LIST changes: +ADVA100A INH; -ADVAI250I INH; -ALBU1AER INH; +ALBUAER3 INH; +ASPI-183 PO; -COZA100T PO; -GABA300C3 PO; +GABA300C5 PO; +LOSA100T PO; -METO25 PO; +METO25TA3 PO; -PRED20 PO
[2017-10-07] MEDS ORDERED: IOHEXOL 350 MG/ML 10 ML VIAL (for RAD DIAG) IVCONTRAST ONE (19:31)
[2017-10-07 19:34] VITALS: BP 229/107; PULSE 71; RESP 18; TEMP 98.1; O2SAT 98
[2017-10-07] MEDS ORDERED: NOVO7030P2 SQ ×2 (20:43)
[2017-10-07] MEDS ORDERED: FURO20TA PO (20:43)
[2017-10-07] MEDS ORDERED: CLOP75TA PO (20:43)
[2017-10-07] MEDS ORDERED: GLYC1AER INH (20:43)
[2017-10-07] MEDS ORDERED: AMLO10TA2 PO (20:43)
--- NOTE | 2017-10-07 20:48 | RADRPT ---
EXAM DATE/TIME: 10/07/2017 20:25 [facility] COMPARISON: CHEST PA & LAT, June 02, 2016, 15:21. INDICATIONS : Short of Breath MEDICAL HISTORY : Hypertension. Diabetes mellitus type 2. SURGICAL HISTORY : Fusion, lumbar. Cholecystectomy. Carpal tunnel syndrome. hip replacement, penile implant, elbow ENCOUNTER: Initial ACUITY: 1 week PAIN SCORE: 0/10 LOCATION: chest FINDINGS: PA and lateral views of the chest demonstrate the lungs to be symmetrically aerated without evidence of mass, infiltrate or effusion. The cardiomediastinal contours are unremarkable. Osseous structure s are intact. CONCLUSION: No evidence of acute cardiopulmonary disease. Geovanny Ramirez MD on October 07, 2017 at 20:45 Board Certified Radiologist. This report was verified electronically.
[2017-10-07 21:00] VITALS: BP 212/96; PULSE 62; RESP 23; O2SAT 98
[2017-10-07] MEDS ORDERED: FUROSEMIDE 40 MG/4 ML VIAL IV PUSH ONE (21:15)
[2017-10-07] MEDS ORDERED: NITROGLYCERIN 2% OINT 1 GM PACKET TOPICAL ONE (21:15)
--- NOTE | 2017-10-07 21:18 | PD ---
HPI Chief Complaint: Respiratory Distress Time Seen by Provider: 21:14 Travel History International Travel<30 days: No Contact w/Intl Traveler<30days: No Traveled to known affect area: No History of Present Illness HPI 77-year-old male patient with history of COPD, asthma, hypertension, presents to the ER with several weeks' history of leg swelling and worsening dyspnea on exertion and shortness of breath. He apparently have been treated for asthma before he went on a cruise, return from a cruise and states that he has been sleeping in the recliner because is getting so bad. He denies any chest pains, fevers, or other symptoms. Modifying Factors: None Associated Signs & Symptoms: Dyspnea on exertion, shortness of breath, leg swelling Risk Factors: None PFSH Past Medical History Arthritis: No Asthma: Yes Autoimmune Disease: No Anxiety: No Depression: No Heart Rhythm Problems: No Cancer: No Cardiovascular Problems: Yes (HTN) High Cholesterol: Yes Chest Pain: No Congestive Heart Failure: No COPD: No Diabetes: Yes (TYPE 2 METFORMIN AND NOVOLOG) Patient Takes Glucophage: Yes (10/07/17) Diminished Hearing: No Endocrine: Yes GERD: No Genitourinary: No Hepatitis: No Hiatal Hernia: No Hypertension: Yes Immune Disorder: No Implanted Vascular Access Dvce: Yes Kidney Stones: No Musculoskeletal: Yes (Arthritis, Back) Neurologic: Yes (Neuropathy ) Psychiatric: No Reproductive: No Respiratory: Yes Migraines: No Renal Failure: No Seizures: No Sickle Cell Disease: No Sleep Apnea: No Thyroid Disease: No Ulcer: No Tetanus Vaccination: < 5 Years Influenza Vaccination: No PNEUMOCCOCAL Vaccine (Year): 1 Past Surgical History Abdominal Surgery: Yes (CHOLECYSTECTOMY) AICD: No Body Medical Devices: Penile pump Cardiac Surgery: No Cholecystectomy: Yes Ear Surgery: No Endocrine Surgery: Yes (gallbladder) Eye Surgery: No Genitourinary Surgery: Yes (PENILE PUMP IMPL.) Gynecologic Surgery: No Joint Replacement: No Neurologic Surgery: Yes (KYPHOPLASTY (?)) Oral Surgery: No Pacemaker: No Thoracic Surgery: No Other Surgery: Yes (Gallbladder, Bilateral hands, Back, left hip) Social History Alcohol Use: No Tobacco Use: No Substance Use: No Allergies-Medications (Allergen,Severity, Reaction): Coded Allergies: No Known Allergies (Verified Adverse Reaction, Unknown, 10/07/17) Reported Meds & Prescriptions Reported Meds & Active Scripts Active Aspirin 325 Mg Tab 325 Mg PO DAILY 90 Days Reported Novolin 70-30 Inj (Insulin Human Isoph/Insulin Regular) 1,000 Unit/10 Ml Vial 23 Units SQ HS Novolin 70-30 Inj (Insulin Human Isoph/Insulin Regular) 1,000 Unit/10 Ml Vial 20 Units SQ AM Bevespi Aerosphere 9-4.8 Mcg/Act (Glycopyrrolate-Formoterol Fuma) 9 Mcg-4.8 Mcg Aer 2 Puff INH BID Clopidogrel (Clopidogrel Bisulfate) 75 Mg Tab 75 Mg PO DAILY Amlodipine (Amlodipine Besylate) 10 Mg Tab 10 Mg PO DAILY Furosemide 20 Mg Tab 20 Mg PO DAILY Terazosin (Terazosin HCl) 10 Mg Cap 10 Mg PO HS Proair Hfa 8.5 GM Inh (Albuterol Sulfate) 90 Mcg/Act Aer 1 Puff INH Q4H PRN 108 mcg/actuation Metoprolol Tartrate 25 Mg Tab 25 Mg PO BID Metformin (Metformin HCl) 850 Mg Tab 850 Mg PO TIDPC With meals Losartan (Losartan Potassium) 100 Mg Tab 100 Mg PO DAILY Humulin R Inj (Insulin Human Regular) 1,000 Unit/10 Ml Vial 1 Units SQ ONCE Gabapentin 300 Mg Cap 300 Mg PO HS Review of Systems Except as stated in HPI: all other systems reviewed are Neg Physical Exam Narrative GENERAL: Well-developed elderly -[place] male patient currently in mild distress. Awake and oriented 3. SKIN: Focused skin assessment warm/dry. HEAD: Atraumatic. Normocephalic. EYES: Pupils equal and round. No scleral icterus. No injection or drainage. ENT: No nasal bleeding or discharge. Mucous membranes pink and moist. NECK: Trachea midline. No JVD. CARDIOVASCULAR: Regular rate and rhythm. No murmur appreciated. RESPIRATORY: Mild accessory muscle use. Decreased throughout. Breath sounds equal bilaterally. GASTROINTESTINAL: Abdomen soft, non-tender, nondistended. Hepatic and splenic margins not palpable. MUSCULOSKELETAL: No obvious deformities. No clubbing. No cyanosis. Bilateral pitting edema of the legs. NEUROLOGICAL: Awake and alert. No obvious cranial nerve deficits. Motor grossly within normal limits. Normal speech. PSYCHIATRIC: Appropriate mood and affect; insight and judgment normal. Data Data Last Documented VS Vital Signs Date Time Temp Pulse Resp B/P (MAP) Pulse Ox O2 Delivery O2 Flow Rate FiO2 10/07/17 22:00 63 22 179/85 (116) 98 Room Air 10/07/17 19:34 98.1 Orders Orders Complete Blood Count With Diff (10/07/17 20:13) Basic Metabolic Panel (Bmp) (10/07/17 20:13) Chest, Pa & Lat (10/07/17 20:13) Blood Culture (10/07/17 20:13) Iv Access Insert/Monitor (10/07/17 20:13) Ecg Monitoring (10/07/17 20:13) Oxygen Administration (10/07/17 20:13) Oximetry (10/07/17 20:13) Electrocardiogram (10/07/17 20:13) Coag Profile (10/07/17 21:12) B-Type Natriuretic Peptide (10/07/17 21:15) D-Dimer (10/07/17 21:15) Furosemide Inj (Lasix Inj) (10/07/17 21:15) Nitroglycerin 2% Oint (Nitroglycerin 2% (10/07/17 21:15) Ct Pulmonary Angiogram (10/07/17 22:55) Us Leg Venous Doppler Bilat (10/07/17 22:55) Iohexol 350 Inj (Omnipaque 350 Inj) (10/07/17 19:31) Ed Discharge Order (10/08/17 01:43) Labs Laboratory Tests Test 10/07/17 21:05 White Blood Count 6.4 TH/MM3 Red Blood Count 4.27 MIL/MM3 Hemoglobin 12.8 GM/DL Hematocrit 38.5 % Mean Corpuscular Volume 90.1 FL Mean Corpuscular Hemoglobin 30.0 PG Mean Corpuscular Hemoglobin Concent 33.3 % Red Cell Distribution Width 14.9 % Platelet Count 219 TH/MM3 Mean Platelet Volume 8.4 FL Neutrophils (%) (Auto) 61.5 % Lymphocytes (%) (Auto) 17.1 % Monocytes (%) (Auto) 12.8 % Eosinophils (%) (Auto) 7.8 % Basophils (%) (Auto) 0.8 % Neutrophils # (Auto) 3.9 TH/MM3 Lymphocytes # (Auto) 1.1 TH/MM3 Monocytes # (Auto) 0.8 TH/MM3 Eosinophils # (Auto) 0.5 TH/MM3 Basophils # (Auto) 0.0 TH/MM3 CBC Comment DIFF FINAL Differential Comment Prothrombin Time 10.0 SEC Prothromb Time International Ratio 1.0 RATIO Activated Partial Thromboplast Time 24.1 SEC D-Dimer Quantitative (PE/DVT) 0.75 MG/L FEU Blood Urea Nitrogen 12 MG/DL Creatinine 1.35 MG/DL Random Glucose 96 MG/DL Calcium Level 8.6 MG/DL Sodium Level 140 MEQ/L Potassium Level 3.9 MEQ/L Chloride Level 107 MEQ/L Carbon Dioxide Level 28.3 MEQ/L Anion Gap 5 MEQ/L Estimat Glomerular Filtration Rate 62 ML/MIN B-Type Natriuretic Peptide 51 PG/ML MDM Medical Decision Making Medical Screen Exam Complete: Yes Emergency Medical Condition: Yes Medical Record Reviewed: Yes Interpretation(s) EKG shows NSR, no ST elevation or depression, and no arrhythmias. No significant T-wave inversions. Laboratory Tests Test 10/07/17 21:05 Red Blood Count 4.27 MIL/MM3 (4.50-5.90) Hemoglobin 12.8 GM/DL (13.0-17.0) Hematocrit 38.5 % (39.0-51.0) Monocytes (%) (Auto) 12.8 % (0.0-8.0) Eosinophils (%) (Auto) 7.8 % (0.0-4.0) Eosinophils # (Auto) 0.5 TH/MM3 (0-0.4) Activated Partial Thromboplast Time 24.1 SEC (24.3-30.1) D-Dimer Quantitative (PE/DVT) 0.75 MG/L FEU (0.00-0.50) Creatinine 1.35 MG/DL (0.60-1.30) Estimat Glomerular Filtration Rate 62 ML/MIN (>89) Last 24 hours Impressions Lower Extremity Ultrasound 10/07/172254 Signed Impressions: Service Date/Time: Saturday, October 07, 2017 23:08 - CONCLUSION: Normal examination. Avni Steen MD CT Angiography 10/07/172254 Signed Impressions: Service Date/Time: Sunday, October 08, 2017 00:06 - CONCLUSION: 1. Negative for pulmonary embolus. 2. Focal subsegmental airspace disease left lower lobe. Primary differential diagnosis is small bronchopneumonia. Avni Steen MD Chest X-Ray 10/07/172012 Signed Impressions: Service Date/Time: Saturday, October 07, 2017 20:25 - CONCLUSION: No evidence of acute cardiopulmonary disease. Geovanny Ramirez MD Differential Diagnosis Dyspnea on exertion, shortness of breath, leg swelling: Dependent edema versus CHF versus pneumonia versus COPD exacerbation Narrative Course EKG did not show any signs of significant dysrhythmias or ST changes. His blood pressure was initially fairly elevated but he came down nicely on its own in the ER. He has significant leg edema and Lasix was given in the ER with good diuresis. His oxygen saturations on room air was 98% in the ER. He is ambulatory without issues. Chest x-ray did not show any signs of acute pulmonary processes. D-dimer was elevated and CT was also ordered for the patient. Ultrasound did not show any signs of leg DVT and CTA was negative for PE. However, there was questionable mild atelectasis versus developing pneumonia on CAT scan. My plan would be to treat him as precaution. At this point, he appears to be doing well and my plan would be to release him with close follow-up to primary care physician. Return for worsening in symptoms as needed. The plan has been discussed with him and he states understanding. Diagnosis Primary Impression: SOB (shortness of breath) Additional Impressions: Hypertension Leg swelling Med/Other Pt SpecificInfo: Prescription(s) given Scripts Prednisone (Prednisone) 50 Mg Tab 50 MG PO DAILY for 3 Days, #3 TAB 0 Refills Prov: Sigrid Lee MD 10/08/17 Azithromycin (Zithromax Z-Noah) 250 Mg Dspk 250 MG PO DIRECTED for Infection, #1 DSPK 0 Refills 500 MG (2 tabs) day 1, then 1 tab days 2-5. Prov: Sigrid Lee MD 10/08/17 Furosemide (Lasix) 20 Mg Tab 20 MG PO BID, #10 TAB 0 Refills Prov: Sigrid Lee MD 10/08/17 Albuterol 8.5 GM Inh (Proair Hfa 8.5 GM Inh) 90 Mcg/Act Aer 1 PUFF INH Q4H Y for SHORTNESS OF BREATH, #1 INHALER 0 Refills 108 mcg/actuation Prov: Sigrid Lee MD 10/08/17 Disposition: 01 DISCHARGE HOME Condition: Stable Sigrid Lee MD Oct 07, 2017 21:18
[2017-10-07 21:23] LABS: AUTOMATED NEUTROPHIL # 3.9 TH/MM3 (1.8-7.7); BASOPHIL % 0.8 % (0.0-2.0); EOSINOPHIL # 0.5 TH/MM3 (0-0.4); EOSINOPHIL % 7.8 % (0.0-4.0); HEMATOCRIT 38.5 % (39.0-51.0); HEMOGLOBIN 12.8 GM/DL (13.0-17.0); LYMPH % 17.1 % (9.0-44.0); LYMPHOCYTE # 1.1 TH/MM3 (1.0-4.8); MEAN CELL VOLUME 90.1 FL (80.0-100.0); MEAN CORPUSCULAR HGB CONC 33.3 % (32.0-36.0); MEAN PLATELET VOLUME 8.4 FL (7.0-11.0); MONO % 12.8 % (0.0-8.0); MONOCYTE # 0.8 TH/MM3 (0-0.9); NEUT % 61.5 % (16.0-70.0); PLATELET COUNT 219 TH/MM3 (150-450); RED BLOOD COUNT 4.27 MIL/MM3 (4.50-5.90); RED CELL DISTRIBUTION WIDTH 14.9 % (11.6-17.2); WHITE BLOOD COUNT 6.4 TH/MM3 (4.0-11.0)
[2017-10-07 21:39] VITALS: RESP 22; O2SAT 98
[2017-10-07 21:44] LABS: BICARBONATE 28.3 MEQ/L (21.0-32.0); CALCIUM 8.6 MG/DL (8.5-10.1); CREATININE 1.35 MG/DL (0.60-1.30)
[2017-10-07 22:00] VITALS: BP 179/85; PULSE 63; RESP 22; O2SAT 98
--- NOTE | 2017-10-07 23:48 | RADRPT ---
EXAM DATE/TIME: 10/07/2017 23:08 [facility] COMPARISON: No previous studies available for comparison. INDICATIONS : Bilateral leg swelling. MEDICAL HISTORY : Hypertension. Glasses. Dentures. Transient ischemic attack. Asthma. Arthritis. SURGICAL HISTORY : Cholecystectomy. Penile implant. Bilateral hand surgery. Left hip surgery. ENCOUNTER: Initial ACUITY: 1 month PAIN SCORE: 2/10 LOCATION: Bilateral legs. TECHNIQUE: Venous ultrasound of the left and right leg was performed from the inguinal ligament to the proximal calf. Real-time, color Doppler and spectral tracing, compression and augmentation techniques were us ed. FINDINGS: RIGHT LEG: There is normal compressibility of the deep venous system from the inguinal region to the proximal ca lf. No echogenic clot is seen in the lumen of the common femoral, femoral, popliteal, and posterior tibial veins. There is a normal response of the venous system to proximal and distal augmentation an d respiration. LEFT LEG: There is normal compressibility of the deep venous system from the inguinal region to the proximal ca lf. No echogenic clot is seen in the lumen of the common femoral, femoral, popliteal, and posterior tibial veins. There is a normal response of the venous system to proximal and distal augmentation an d respiration. CONCLUSION: Normal examination. Avni Steen MD on October 07, 2017 at 23:45 Board Certified Radiologist. This report was verified electronically.
--- NOTE | 2017-10-08 00:40 | RADRPT ---
EXAM DATE/TIME: 10/08/2017 00:06 [facility] COMPARISON: No previous studies available for comparison. INDICATIONS : Shortness of breath. IV CONTRAST: 80 cc Omnipaque 350 (iohexol) IV RADIATION DOSE: 23.38 CTDIvol (mGy) MEDICAL HISTORY : Hypertension. Diabetes mellitus type 2. SURGICAL HISTORY : Cholecystectomy. Kyphoplasty. ENCOUNTER: Initial ACUITY: 1 day PAIN SCALE: 0/10 LOCATION: chest TECHNIQUE: Volumetric scanning of the chest was performed using a pulmonary embolism protocol MIP images were re constructed. Using automated exposure control and adjustment of the mA and/or kV according to patien t size, radiation dose was kept as low as reasonably achievable to obtain optimal diagnostic quality images. DICOM format image data is available electronically for review and comparison. Follow-up recommendations for detected pulmonary nodules are based at a minimum on nodule size and pa tient risk factors according to Fleischner Society Guidelines. FINDINGS: There are no filling defects to suggest pulmonary embolus. No pleural effusion. Trace pericardial flu id. There is a focal airspace disease left lower lobe measuring about 2.5 cm in diameter. This could represent a small bronchopneumonia. Right lung relatively clear. No acute findings in the upper abdom en. No adenopathy. CONCLUSION: 1. Negative for pulmonary embolus. 2. Focal subsegmental airspace disease left lower lobe. Primary differential diagnosis is small bronc hopneumonia. Avni Steen MD on October 08, 2017 at 0:35 Board Certified Radiologist. This report was verified electronically.
[2017-10-08] MEDS ORDERED: ZITHTAB PO (01:54)
[2017-10-08] MEDS ORDERED: ALBUAER3 INH (01:54)
[2017-10-08] MEDS ORDERED: FURO1TAB62 PO (01:54)
[2017-10-08] MEDS ORDERED: PRED50 PO (01:54)
[2017-10-08 02:20] VITALS: BP 147/83; PULSE 70; RESP 19; O2SAT 100
--- NOTE | 2017-10-08 18:58 | EKG ---
Date Performed: 10/07/2017 Time Performed: 20:57:48 PTAGE: 77 years EKG: Sinus rhythm WITH FIRST DEGREE AV BLOCK NONSPECIFIC T-WAVE ABNORMALITY Since previous tracing, no significant suman nge noted ABNORMAL ECG PREVIOUS TRACING : 09/10/2016 14.17 DOCTOR: Prabhakar Lauren Interpretating Date/Time 10/08/2017 18:57:33
== END 2017-10-08 02:35 | disposition home or self-care (01) ==
LOC: NEPE 19:30
DX: R06.02 Shortness of breath (principal); I10 Essential (primary) hypertension; M79.89 Other specified soft tissue disorders; E11.9 Type 2 diabetes mellitus without complications; Z79.4 Long term (current) use of insulin
CPT/HCPCS: 71046; 71275; 80048; 83880; 85025; 85379; 85610; 85730; 87040; 87205; 93005; 93970; 96374; 99285; J1940; Q9967

== ENCOUNTER → 2018-03-06 | Outpatient (CLI) | payer OTHER ==
[~2018-03-06] MED LIST changes: -ADVA100A INH; +AMLO10TA2 PO; +CLOP75TA PO; +FURO1TAB62 PO; +FURO20TA PO; +GLYC1AER INH; +NOVO7030P2 SQ; +PRED50 PO; +ZITHTAB PO; -ZOCO40TA PO
--- NOTE | 2018-03-08 07:53 | RSPPFT ---
DATE OF PROCEDURE: 03/06/18 COMMENTS: Spirometry shows FVC of 1.2 at 31% of predicted, FEV1 of 0.6 at 21%, FEV1/FVC ratio is decreased. Flow is decreased at FEF 25, FEF 50, FEF 75 and FEF 25-75. There is a good response after bronchodilator treatment. Lung volumes show residual volume is increased. TLC is decreased. Diffusion capacity, when corrected for lung volumes, is normal. Flow volume loop indicates an obstructive pattern. Room air arterial blood gases show pH of 7.42, PCO2 of 42, PO2 of 73, BiCarb of 27, O2 Saturation at 92%. IMPRESSION: 1. Severe obstructive lung disease. 2. Good response after bronchodilator treatment. 3. Additional mild restrictive lung disease. 4. Normal diffusion capacity when corrected for lung volumes. 5. Blood gases show mild hypoxia.
== END ==
LOC: HRSP 12:46
PROVIDERS: ATTEND Specialist
DX: J44.9 Chronic obstructive pulmonary disease, unspecified (principal)
CPT/HCPCS: 36600; 82805; 94060; 94726; 94729

== ENCOUNTER 2018-09-18 19:13 | Inpatient (IN) ==
[2018-09-18] MEDS ORDERED: hydrALAZINE HCl Inj 20 MG/ML Vial IV.PUSH ONE (22:34)
--- NOTE | 2018-09-18 23:13 | CT ---
EXAM DATE: 09/18/2018 11:03 PM EST AGE/SEX: 78 years / Male INDICATIONS: Dizziness. CLINICAL DATA: This is the patient's initial encounter. Patient reports that signs and symptoms have been present for 1 day and indicates a pain score of 0/10. MEDICAL/SURGICAL HISTORY: Hypertension. Diabetes. None. RADIATION DOSE: 56.35 CTDI (mGy) COMPARISON: [facility] [place], [place] BRAIN W/O CONTRAST, 09/11/2016. . TECHNIQUE: CT of the head without contrast. Using automated exposure control and adjustment of the mA and/or kV according to patient size, radiation dose was kept as low as reasonably achievable to ob tain optimal diagnostic quality images. DICOM format image data is available electronically for revi ew and comparison. FINDINGS: Cerebrum: Subtle linear high attenuation involving a solitary sulcus involving the right parietal lo be near the vertex. This is best appreciated on image 24. 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 This was seen on the prior MRI. The ventricles are normal for age. No ev idence of midline shift, mass lesion, or acute infarction. No extraaxial fluid collections are seen. Posterior Fossa: The cerebellum and brainstem are intact. The 4th ventricle is midline. The cerebe llopontine angle is unremarkable. Extracranial: The visualized portion of the orbits is intact. Mucosal thickening throughout the fron randall sinuses, ethmoid air cells, maxillary sinuses, and sphenoid sinuses bilaterally. Mastoid air cell s are clear. Skull: The calvaria is intact. No evidence of skull fracture. CONCLUSION: 1. Possible very small volume acute subarachnoid hemorrhage involving the right parietal lobe near t he vertex. 2. Chronic ramos sinus disease. . Electronically signed by: Yamil Hinkle MD Board Certified Radiologist 09/18/2018 11:12 PM EST
[2018-09-18] MEDS ORDERED: Labetalol HCl Inj 100 MG/20 ML Vial IV.PUSH ONE (23:14)
[2018-09-18] MEDS ORDERED: Labetalol HCl Inj 100 MG/20 ML Vial ONE (23:20)
[2018-09-18 23:29] LABS: Baso % (Auto) 0.6 % (0.0-2.0); Eos # (Auto) 0.5 th/mm3 (0.0-0.4); Eos % (Auto) 5.1 % (0.0-4.0); Hematocrit 37.2 % (39.0-51.0); Hemoglobin 12.2 gm/dL (13.0-17.0); Lymph # (Auto) 1.4 th/mm3 (1.0-4.8); Lymph % (Auto) 15.7 % (9.0-44.0); Mean Corpuscular Hemoglobin 29.7 pg (27.0-34.0); Mean Corpuscular Volume 90.1 fL (80.0-100.0); Mean Platelet Volume 9.6 fL (7.0-11.0); Mono # (Auto) 0.8 th/mm3 (0.0-0.9); Mono % (Auto) 9.4 % (0.0-8.0); Neut # (Auto) 6.2 th/mm3 (1.8-7.7); Neut % (Auto) 69.2 % (16.0-70.0); Platelet Count 190 th/mm3 (150-450); Red Blood Count 4.12 mil/mm3 (4.50-5.90); Red Cell Distribution Width 15.2 % (11.6-17.2)
[2018-09-18] MEDS ORDERED: Morphine Sulfate Inj 2 MG/ML Vial IV.PUSH PRN (23:36)
[2018-09-18] MEDS ORDERED: Bisacodyl 10 MG Supp RECTAL PRN (23:36)
[2018-09-18] MEDS ORDERED: Acetaminophen 325 MG Tablet PO PRN (23:36)
--- NOTE | 2018-09-18 23:36 | P.HPCC ---
History of Present Illness Primary Care Physician: UNKNOWN History of Present Illness: 78 year old male presents with a complaint of uncontrolled hypertension. The patient reports that he went to go and donate blood and he was told that he could not donate blood because his blood pressure was too high. Patient reports his blood pressures were in the 220s, reports that he has not been feeling dizzy but has been feeling "woozy in the head," reports that his head felt "dull." Patient does take multiple medications for his hypertension including amlodipine as well as losartan, he is also on antiplatelet, Plavix. Reports that he has been compliant. Patient with no chest pain or shortness of breath, no other complaints. CT of the head obtained in the emergency department shows possible very small volume acute subarachnoid hemorrhage involving the right parietal lobe near the vertex. The patient has been admitted to [facility] with a neurosurgical consultation in place. Inpatient Certification: I certify that the inpatient services were ordered in accordance with Medicare regulations governing the order. This includes certification that hospital inpatient services are reasonable and necessary and in the case of services not specified as inpatient-only under 42 CFR 419.22(n), that they are appropriately provided as inpatient services in accordance to with the 2-midnight benchmark under 43 CFR 412.3(e) Review of Systems All other systems reviewed negative except as stated in HPI PMFSH - History History Provided By: Patient - Medical History Medical History: Medical History (Last Reviewed 09/19/18 @ 00:05 by Elenita Pierre) Asthma Diabetes HTN (hypertension) - Surgical History Surgical History: Surgical History (Last Reviewed 09/19/18 @ 00:05 by Elenita Pierre) History of orthopedic surgery Hx of cholecystectomy - Tobacco History Smoking Status: Never smoker - Alcohol History How Often Do You Have a Drink Containing Alcohol: Never - Substance Use History Substance History: No History of Abuse - Travel History Recent Travel in the [place] Within the Last 8 Weeks: No Recent Travel Out of the Country Within the Last 8 Weeks: No - Immunization History Tetanus Immunization: Unsure Medications and Allergies Active Medications: Active Medications Sodium Chloride (Ns Flush) 2 ml IV.FLUSH UNSCH PRN PRN Reason: FLUSH AFTER USING IV ACCESS Allergies Allergy/AdvReac Type Severity Reaction Status Date / Time No Known Allergies Allergy Verified 09/18/18 20:08 Home Medications Medication Instructions Recorded Confirmed Type amlodipine 10 mg PO DAILY 09/18/18 09/18/18 History aspirin 09/18/18 History clopidogrel 75 mg PO DAILY 09/18/18 09/18/18 History furosemide 20 mg PO DAILY 09/18/18 09/18/18 History gabapentin 300 mg PO BID 09/18/18 09/18/18 History insulin NPH and regular human 20 unit SUBCUT BID 09/18/18 09/18/18 History [Novolin 70/30 U-100 Insulin] losartan 100 mg PO DAILY 09/18/18 09/18/18 History metformin 850 mg PO BID 09/18/18 09/18/18 History terazosin 10 mg PO DAILY 09/18/18 09/18/18 History Results - Labs CBC & Chem 7: 09/18/18 23:08 09/18/18 23:08 Labs: Short CBC 09/18/18 Range/Units 23:08 WBC 9.0 (4.0-11.0) th/mm3 Hgb 12.2 L (13.0-17.0) gm/dL Hct 37.2 L (39.0-51.0) % Plt Count 190 (150-450) th/mm3 - Imaging Impressions Head CT 09/18/18 22:33 CONCLUSION: 1. Possible very small volume acute subarachnoid hemorrhage involving the right parietal lobe near the vertex. 2. Chronic ramos sinus disease. . Exam Vital signs: Vital Signs 09/18/18 20:06 09/18/18 22:09 09/18/18 23:07 Temperature 98.5 F Pulse Rate 85 58 L 73 Respiratory Rate 14 18 Blood Pressure 191/80 H 200/91 H Pulse Oximetry 98 99 09/18/18 23:08 09/18/18 23:25 Temperature Pulse Rate 85 70 Respiratory Rate 16 16 Blood Pressure 200/91 H 228/100 H Pulse Oximetry 99 Intake & Output 09/18/18 09/18/18 09/19/18 06:59 18:59 06:59 Weight 96.615 kg - Constitutional no acute distress - Routine HEENT Exam Head: Present: normocephalic, atraumatic Eye: Present: PERRL - Routine Neck Exam Present: supple, full ROM. Absent: JVD, carotid bruit - Routine Respiratory Exam Absent: accessory muscle use, rales, rhonchi, wheezes - Routine Cardiovascular Exam Present: RRR, S1, S2 - Routine Abdominal Exam Present: soft, normoactive bowel sounds. Absent: tenderness, distended - Routine Extremities Exam Absent: cyanosis, clubbing, edema - Routine Skin Exam Present: intact. Absent: cyanosis, erythema - Routine Neurological Exam Present: alert, oriented X3, moving all extremities Septic Shock Reassessment Septic shock perfusion: reassessment completed Caprini VTE Risk Assessment Caprini VTE Risk Assessment: Moderate/High Risk (score >= 2) VTE Pharmacological Exception Reason: Hemorrhage, Intracranial lesions Caprini Risk Assessment Model: Point Value = 1 Point Value = 2 Point Value = 3 Point Value = 5 Age 41-60 Minor surgery BMI > 25 kg/m2 Swollen legs Varicose veins or History of unexplained or recurrent spontaneous Oral contraceptives or hormone replacement Sepsis (< 1 month) Serious lung disease, including pneumonia (< 1 month) Abnormal pulmonary function Acute myocardial infarction Congestive heart failure (< 1 month) History of inflammatory bowel disease Medical patient at bed rest Age 61-74 Arthroscopic surgery Major open surgery (> 45 min) Laparoscopic surgery (> 45 min) Malignancy Confined to bed (> 72 hours) Immobilizing plaster cast Central venous access Age >= 75 History of VTE Family history of VTE Factor V Leiden Prothrombin [id number] Lupus anticoagulant Anticardiolipin antibodies Elevated serum homocysteine Heparin-induced thrombocytopenia Other congenital or acquired thrombophilia Stroke (< 1 month) Elective arthroplasty Hip, pelvis, or leg fracture Acute spinal cord injury (< 1 month) Prophylaxis Regimen: Total Risk Factor Score Risk Level Prophylaxis Regimen 0-1 Low Early ambulation 2 Moderate Order ONE of the following: *Sequential Compression Device (SCD) *Heparin 5000 units SQ BID 3-4 Higher Order ONE of the following medications: *Heparin 5000 units SQ TID *Enoxaparin/Lovenox 40 mg SQ daily (WT < 150 kg, CrCl > 30 mL/min) *Enoxaparin/Lovenox 30 mg SQ daily (WT < 150 kg, CrCl > 10-29 mL/min) *Enoxaparin/Lovenox 30 mg SQ BID (WT < 150 kg, CrCl > 30 mL/min) AND/OR *Sequential Compression Device (SCD) 5 or more Highest Order ONE of the following medications: *Heparin 5000 units SQ TID (Preferred with Epidurals) *Enoxaparin/Lovenox 40 mg SQ daily (WT < 150 kg, CrCl > 30 mL/min) *Enoxaparin/Lovenox 30 mg SQ daily (WT < 150 kg, CrCl > 10-29 mL/min) *Enoxaparin/Lovenox 30 mg SQ BID (WT < 150 kg, CrCl > 30 mL/min) AND *Sequential Compression Device (SCD) Assessment and Plan - Assessment and Plan Plan: Subarachnoid bleed -Possible bleed per CT report -Admit to [facility] -Neurochecks per unit protocol -Neurosurgical consultation -Coags profile pending -Platelet count above 190 -Hold aspirin and Plavix -Repeat CT head a.m. -SBP goal less than 140 Hypertension -Nicardipine drip -SBP goal less than 140 due to possible ICH -Resume home meds Diabetes mellitus -Hold metformin while in the ICU -Insulin sliding scale History of asthma -DuoNeb's as needed DVT GI prophylaxis -Teds SCDs -No pharmacological DVT prophylaxis due to possible ICH -Pepcid 35 minutes of critical care
[2018-09-18 23:37] LABS: Calcium 8.9 mg/dL (8.5-10.1); Carbon Dioxide 31.1 meq/L (21.0-32.0); Potassium 3.9 meq/L (3.5-5.1)
[2018-09-18] MEDS ORDERED: Dextrose 50% in Water 50 ML Vial IV.PUSH PRN (23:42)
--- NOTE | 2018-09-18 23:50 | ED ---
HPI General Chief complaint: Hypertension Stated complaint: High blood pressure Time Seen by Provider: 09/18/18 22:27 Source: patient Mode of arrival: ambulatory Limitations: no limitations History of Present Illness HPI narrative: Patient is a 78 year old male who presents to the ER with c/o of hypertension. Reports that he went to go and donate blood and he was told that he could not donate blood because his blood pressure was too high. Patient reports his blood pressures were in the 220s, reports that he has not been feeling dizzy but has been feeling "woozy in the head," reports that his head felt "dull." Patient does take multiple medications for his hypertension including amlodipine as well as losartan, he is also on antiplatelet, Plavix. Reports that he has been compliant. Patient with no chest pain or shortness of breath, no other complaints. Related Data Home Medications Medication Instructions Recorded Confirmed amlodipine 10 mg PO DAILY 09/18/18 09/18/18 aspirin 09/18/18 clopidogrel 75 mg PO DAILY 09/18/18 09/18/18 furosemide 20 mg PO DAILY 09/18/18 09/18/18 gabapentin 300 mg PO BID 09/18/18 09/18/18 insulin NPH and regular human 20 unit SUBCUT BID 09/18/18 09/18/18 [Novolin 70/30 U-100 Insulin] losartan 100 mg PO DAILY 09/18/18 09/18/18 metformin 850 mg PO BID 09/18/18 09/18/18 terazosin 10 mg PO DAILY 09/18/18 09/18/18 Allergies Allergy/AdvReac Type Severity Reaction Status Date / Time No Known Allergies Allergy Verified 09/18/18 20:08 Review of Systems ROS: all other systems reviewed are negative [facility] Medical History Medical History Asthma (Acute) Diabetes (Acute) HTN (hypertension) (Acute) Surgical History Surgical History History of orthopedic surgery (Acute) Hx of cholecystectomy (Acute) Social History Social History Substance History: No History of Abuse Smoking Status: Never smoker How Often Do You Have a Drink Containing Alcohol: Never Recent Travel in [facility] within the Last 8 Weeks: No Recent Out of Country Travel within the Last 8 Weeks: No Immunization History Tetanus Immunization: Unsure Exam Narrative Exam Narrative: GENERAL: NAD SKIN: Focused skin assessment warm/dry. HEAD: Atraumatic. Normocephalic. EYES: Pupils equal and round. No scleral icterus. No injection or drainage. ENT: No nasal bleeding or discharge. Mucous membranes pink and moist. NECK: Trachea midline. No JVD. CARDIOVASCULAR: Regular rate and rhythm. No murmur appreciated. RESPIRATORY: No accessory muscle use. Clear to auscultation. Breath sounds equal bilaterally. GASTROINTESTINAL: Abdomen soft, non-tender, nondistended. Hepatic and splenic margins not palpable. MUSCULOSKELETAL: No obvious deformities. No clubbing. No cyanosis. No edema. NEUROLOGICAL: Awake and alert. No obvious cranial nerve deficits. Motor grossly within normal limits. Normal speech. PSYCHIATRIC: Appropriate mood and affect; insight and judgment normal. Course Initial Documented Vital Signs Temperature 98.5 F 09/18/18 20:06 Pulse Rate 85 09/18/18 20:06 Respiratory Rate 14 09/18/18 20:06 Blood Pressure 191/80 H 09/18/18 20:06 Pulse Oximetry 98 09/18/18 20:06 Last Documented Vital Signs Temperature 98.5 F 09/18/18 20:06 Pulse Rate 70 09/18/18 23:25 Respiratory Rate 16 09/18/18 23:25 Blood Pressure 228/100 H 09/18/18 23:25 Pulse Oximetry 99 09/18/18 23:08 Critical Care Time Critical Care Time: Yes Total Critical Care Time: 30 Attestation: Aggregate critical care time was 30 minutes. Time to perform other separately billable procedures was not included in the critical care time. My time did not include minutes spent treating any other patients simultaneously or on activities that did not directly contribute to the patient's treatment. The services I provided to this patient were to treat and/or prevent clinically significant deterioration that could result in: , decompensation, deterioration I provided critical care services requiring my management, as noted below: Chart data review, documentation time, medication orders and management, vital sign assessments/reviewing monitor data, ordering and reviewing lab tests, ordering and interpreting/reviewing x-rays and diagnostic studies, care of the patient and discussion of the patient with the admitting physicians. Medical Decision Making MDM Narrative Medical decision making narrative: During the course of the patients emergency department visit, the patients history, examination, and differential diagnosis were reviewed with the patient. The patient was placed on a athletic monitor with oximetry and frequent blood pressure monitoring. The patient had an IV access obtained and blood work sent for analysis. The patient was initially provided 5mg of IV labetolol. The patients laboratory studies were reviewed Radiology studies were reviewed and remarkable: Ct of head possible very small volume acute SAH involving the right parietal lobe near the vertex. I reviewed CT report with patient, plan to admit him to the ICU for blood pressure control. Dr. Stiles accepts patient to service, he started him on a Cardene drip. Medical Screen Exam Complete: Yes Emergency Medical Condition: Yes Differential Diagnosis Differential Diagnosis: ich, hypertensive urgency Medical Records Medical records reviewed: Yes I reviewed the patient's medical records. Lab Data Lab results reviewed: Yes I reviewed the patient's lab results. Result diagrams: 09/18/18 23:08 09/18/18 23:08 Lab Results 09/18/18 09/18/18 Range/Units 23:08 23:08 WBC 9.0 (4.0-11.0) th/mm3 RBC 4.12 L (4.50-5.90) mil/mm3 Hgb 12.2 L (13.0-17.0) gm/dL Hct 37.2 L (39.0-51.0) % MCV 90.1 (80.0-100.0) fL MCH 29.7 (27.0-34.0) pg MCHC 33.0 (32.0-36.0) % RDW 15.2 (11.6-17.2) % Plt Count 190 (150-450) th/mm3 MPV 9.6 (7.0-11.0) fL Neut % (Auto) 69.2 (16.0-70.0) % Lymph % (Auto) 15.7 (9.0-44.0) % [place] % (Auto) 9.4 H (0.0-8.0) % Eos % (Auto) 5.1 H (0.0-4.0) % Baso % (Auto) 0.6 (0.0-2.0) % Neut # (Auto) 6.2 (1.8-7.7) th/mm3 Lymph # (Auto) 1.4 (1.0-4.8) th/mm3 [place] # (Auto) 0.8 (0.0-0.9) th/mm3 Eos # (Auto) 0.5 H (0.0-0.4) th/mm3 Baso # (Auto) 0.0 (0.0-0.2) th/mm3 WBC Differential . Differential Comment Auto diff final Sodium 141 (136-145) meq/L Potassium 3.9 (3.5-5.1) meq/L Chloride 107 (98-107) meq/L Carbon Dioxide 31.1 (21.0-32.0) meq/L Anion Gap 3 L (5-15) meq/L BUN 13 (7-18) mg/dL Creatinine 1.35 H (0.60-1.30) mg/dL Estimated GFR 62 L (>89) mL/min Random Glucose 141 H (74-106) mg/dL Calcium 8.9 (8.5-10.1) mg/dL Imaging Data Attestation: I personally reviewed and interpreted this imaging study as follows : Radiologist's impression: Head CT 09/18/18 22:33 CONCLUSION: 1. Possible very small volume acute subarachnoid hemorrhage involving the right parietal lobe near the vertex. 2. Chronic ramos sinus disease. . ECG Data EKG Prior to Arrival: No Attestation: I personally reviewed and interpreted this ECG as follows: Interpretation: EK Gat 2312: NSR at 68bpm, qt/qtc: 394/410, 1st degree av block Discharge Plan Discharge Disposition Patient Disposition: ED Admit(ED Internal Use Only) Discharge Condition Condition: Stable Discharge Order Discharge Orders: ED Use Only Admit Order (Routine); Ordered 09/18/18 Ordered By: Elenita Pierre Discharge Details Diagnosis: SAH (subarachnoid hemorrhage) Physicians Team ED Provider: Elenita Pierre Primary Care Provider: UNKNOWN, Attending Provider: Jourdan Stiles Other Providers: Froylan Castaneda ; Humanmarybel,[employer] Discharge Interventions Interventions: Vital Signs Last Done: 09/18/18 22:09 Status ED Status: Admitted Patient
[2018-09-19] MEDS: Sod Chloride 0.9% Inj 1,000 ML IV.CONT SCH ×2 (00:26→14:50)
[2018-09-19] MEDS: Insulin NovoLOG Aspart Correctional Sugar Inj SQ SCH ×4 (00:27→18:06)
[2018-09-19] MEDS: niCARdipine Inj 25 MG in Sodium Chlor 0.9% Inj 240 ML IV.CONT PRN ×4 (00:40→20:26)
[2018-09-19 00:42] LABS: Activated Partial Thrombo Time 24.5 sec (23.4-31.7); Prothrombin Time 10.2 sec (9.8-11.6)
[2018-09-19 04:00] LABS: Baso % (Auto) 0.5 % (0.0-2.0); Eos # (Auto) 0.5 th/mm3 (0.0-0.4); Eos % (Auto) 5.3 % (0.0-4.0); Hematocrit 38.6 % (39.0-51.0); Hemoglobin 12.9 gm/dL (13.0-17.0); Lymph # (Auto) 1.5 th/mm3 (1.0-4.8); Lymph % (Auto) 16.6 % (9.0-44.0); Mean Corpuscular HGB Conc 33.5 % (32.0-36.0); Mean Corpuscular Hemoglobin 30.1 pg (27.0-34.0); Mean Corpuscular Volume 89.9 fL (80.0-100.0); Mean Platelet Volume 9.7 fL (7.0-11.0); Mono # (Auto) 0.8 th/mm3 (0.0-0.9); Mono % (Auto) 9.1 % (0.0-8.0); Neut # (Auto) 6.3 th/mm3 (1.8-7.7); Neut % (Auto) 68.5 % (16.0-70.0); Platelet Count 194 th/mm3 (150-450); Red Blood Count 4.29 mil/mm3 (4.50-5.90); Red Cell Distribution Width 15.2 % (11.6-17.2); White Blood Count 9.2 th/mm3 (4.0-11.0)
[2018-09-19] MEDS ORDERED: Chlorhexidine Gluconate 2% 1 Pack (2 Cloths) TOPICAL PRN (04:00)
[2018-09-19 04:07] LABS: Prothrombin Time 10.2 sec (9.8-11.6)
[2018-09-19 04:25] LABS: Alanine Aminotransferase 27 U/L (12-78); Albumin 3.6 g/dL (3.4-5.0); Anion Gap 8 meq/L (5-15); Aspartate Aminotransferase 15 U/L (15-37); Blood Urea Nitrogen 12 mg/dL (7-18); Calcium 9.1 mg/dL (8.5-10.1); Carbon Dioxide 27.4 meq/L (21.0-32.0); Chloride 106 meq/L (98-107); Glomerular Filtration Rate 69 mL/min (>89); Glucose,Random 144 mg/dL (74-106); Phosphorus 3.4 mg/dL (2.5-4.9); Potassium 3.6 meq/L (3.5-5.1); Sodium 141 meq/L (136-145)
[2018-09-19 04:29] LABS: Alkaline Phosphatase 80 U/L (45-117); Total Protein 7.3 g/dL (6.4-8.2); Troponin I 0.05 ng/mL (0.02-0.05)
[2018-09-19] MEDS: Chlorhexidine Gluconate 2% 1 Pack (2 Cloths) TOPICAL SCH (06:20)
--- NOTE | 2018-09-19 08:27 | P.PNCC ---
Subjective Subjective Remarks/Hospital Course: 09/18: 78 year old male presents with a complaint of uncontrolled hypertension. The patient reports that he went to go and donate blood and he was told that he could not donate blood because his blood pressure was too high. Patient reports his blood pressures were in the 220s, reports that he has not been feeling dizzy but has been feeling "woozy in the head," reports that his head felt "dull." Patient does take multiple medications for his hypertension including amlodipine as well as losartan, he is also on antiplatelet, Plavix. Reports that he has been compliant. Patient with no chest pain or shortness of breath, no other complaints. CT of the head obtained in the emergency department shows possible very small volume acute subarachnoid hemorrhage involving the right parietal lobe near the vertex. The patient has been admitted to [facility] with a neurosurgical consultation in place. 09/19: Resting comfortably in bed. Completely awake and alert. Denies any headache. On Cardene drip. Moving all extremities. Feeling hungry. Objective Vital Signs / I&O: Vital Signs 09/18/18 20:06 09/18/18 22:09 09/18/18 23:07 Temperature 98.5 F Pulse Rate 85 58 L 73 Respiratory Rate 14 18 Blood Pressure 191/80 H 200/91 H Pulse Oximetry 98 99 09/18/18 23:08 09/18/18 23:25 09/19/18 00:04 Temperature Pulse Rate 85 70 60 Respiratory Rate 16 16 16 Blood Pressure 200/91 H 228/100 H 215/98 H Pulse Oximetry 99 100 09/19/18 00:45 09/19/18 01:00 09/19/18 01:15 Temperature Pulse Rate 66 60 60 Respiratory Rate 16 16 16 Blood Pressure 200/92 H 169/76 H 164/74 H Pulse Oximetry 99 97 09/19/18 08:00 Temperature Pulse Rate 67 Respiratory Rate Blood Pressure Pulse Oximetry 97 Intake & Output 09/18/18 09/19/18 09/19/18 18:59 06:59 18:59 Output Total 1280 / 1280 Balance -1280 / -1280 Weight 90.2 kg Output: Urine 1280 / 1280 Other: # Bowel Movements 0 Result Diagrams: 09/19/18 03:10 09/19/18 03:10 Imaging: Impressions Head CT 09/18/18 22:33 CONCLUSION: 1. Possible very small volume acute subarachnoid hemorrhage involving the right parietal lobe near the vertex. 2. Chronic ramos sinus disease. . Objective Remarks: HEENT/Neuro: No pallor or icterus, tongue moist, ASHWINI, Awake alert oriented 3 , nonfocal grossly, moving all 4 extremities Neck: No JVD Chest/pulmonary: CTA bilaterally Cardiovascular: S1-S2 regular no gallop or murmur GI/abdomen: Soft, nontender, bowel sounds present Extremities: Warm bilaterally, no edema Assessment and Plan - Assessment and Plan Plan: Subarachnoid bleed -Neurochecks per unit protocol -Neurosurgical consultation -Coags profile pending -Platelet count above 190 -Hold aspirin and Plavix -MRI and MRV per neurosurgery. Consult neurology per neurosurgery recommendation -SBP goal less than 140 Hypertension -Nicardipine drip -SBP goal less than 140 due to possible ICH -Resume home meds Diabetes mellitus -Hold metformin while in the ICU -Insulin sliding scale History of asthma -DuoNeb's as needed DVT GI prophylaxis -Teds SCDs -No pharmacological DVT prophylaxis due to possible ICH -Pepcid 35 minutes of critical care
[2018-09-19] MEDS: amLODIPine 10 MG Tablet PO SCH (09:41)
[2018-09-19] MEDS: Senna/Docusate Sodium 8.6/50 MG Tablet PO SCH ×2 (09:42→20:25)
[2018-09-19] MEDS: Furosemide 20 MG Tablet PO SCH (09:42)
[2018-09-19] MEDS: Gabapentin 300 MG Capsule PO SCH ×2 (09:43→20:25)
[2018-09-19] MEDS: Famotidine PF Inj 20 MG/2 ML Vial IV.PUSH SCH ×2 (09:43→20:25)
--- NOTE | 2018-09-19 10:34 | P.CONNS ---
History of Present Illness Service: [facility] Primary Care Provider: UNKNOWN Chief Complaint: mild headache History of Present Illness: 78yoM who had very high blood pressure yesterday ~> 200 with slight woozy feeling in the head. No LOC. CT head showed a small right parietal high ? subarachnoid hemorrhage (not in basal cisterns). Patient has been admitted to ICU on a cardine gtt and has remained neurologically intact. He has a mild headache. Patient does take multiple medications for his hypertension including amlodipine as well as losartan, he is also on antiplatelet, Plavix. Reports that he has been compliant. Patient with no chest pain or shortness of breath, no other complaints. CT of the head obtained in the emergency department shows possible very small volume acute subarachnoid hemorrhage involving the right parietal lobe near the vertex. The patient has been admitted to [facility] with a neurosurgical consultation in place. [facility] - History History Provided By: Patient - Medical History Medical History: Medical History (Last Reviewed 09/19/18 @ 07:47 by Alissa Pritchard) Asthma Diabetes HTN (hypertension) - Surgical History Surgical History: Surgical History (Last Reviewed 09/19/18 @ 07:47 by Alissa Pritchard) History of orthopedic surgery Hx of cholecystectomy - Tobacco History Smoking Status: Never smoker - Alcohol History How Often Do You Have a Drink Containing Alcohol: Never - Substance Use History Substance History: No History of Abuse - Travel History Recent Travel in the [place] Within the Last 8 Weeks: No Recent Travel Out of the Country Within the Last 8 Weeks: No - Immunization History Tetanus Immunization: Unsure Medications and Allergies Active Medications: Active Medications Acetaminophen (Tylenol) 650 mg PO Q6H PRN PRN Reason: PAIN 1-5 AND/OR FEVER >101F Al Hydroxide/Mg Hydroxide (Milk Of Adalberto [place]) 30 ml PO Q12H PRN PRN Reason: Mild Constipation Albuterol (Duoneb Neb (Prn)) 1 ampul NEB Q2HR NEB PRN PRN Reason: WHEEZING Amlodipine Besylate (Norvasc) 10 mg PO DAILY PENDING SALE TO [facility] Last Admin: 09/19/18 09:41 Dose: 10 mg Bisacodyl (Dulcolax Supp) 10 mg RECTAL DAILY PRN PRN Reason: SEVERE CONSITIPATION Chlorhexidine Gluconate (Chlorhexidine 2% Cloth) 3 pack TOPICAL DAILY@0400 PRN PRN Reason: Extra cloth needed Stop: 09/24/18 03:59 Chlorhexidine Gluconate (Chlorhexidine 2% Cloth) 3 pack TOPICAL DAILY@0400 PENDING SALE TO [facility] Stop: 09/24/18 03:59 Last Admin: 09/19/18 06:20 Dose: Not Given Dextrose (D50w Vial) 50 ml IV.PUSH UNSCH PRN PRN Reason: PER HYPOGLYCEMIA PROTOCOL Famotidine (Pepcid Pf Inj) 20 mg IV.PUSH Q12HR PENDING SALE TO [facility] Last Admin: 09/19/18 09:43 Dose: 20 mg Furosemide (Lasix) 20 mg PO DAILY PENDING SALE TO [facility] Last Admin: 09/19/18 09:42 Dose: 20 mg Gabapentin (Neurontin) 300 mg PO BID PENDING SALE TO [facility] Last Admin: 09/19/18 09:43 Dose: 300 mg Glucagon (Glucagon Inj) 1 mg OTHER PRN PRN PRN Reason: for Hypoglycemia Protocol Sodium Chloride (Ns Inj) 1,000 mls @ 84 mls/hr IV.CONT .[id number] PENDING SALE TO [facility] Last Infusion: 09/19/18 01:15 Dose: 84 mls/hr Nicardipine HCl 25 mg/ Sodium (Chloride) 250 mls @ 50 mls/hr IV.CONT TITRATE PRN; Protocol PRN Reason: Per Protocol Last Admin: 09/19/18 09:50 Dose: 5.2 mg/hr, 52 mls/hr Insulin Aspart (Novolog Insulin Correctional Sugar Inj) 0 unit SQ Q6HR PENDING SALE TO [facility]; Protocol Last Admin: 09/19/18 06:20 Dose: Not Given Lactulose (Lactulose Liq) 30 ml PO DAILY PRN PRN Reason: SEVERE CONSITIPATION Losartan Potassium (Cozaar) 100 mg PO DAILY PENDING SALE TO [facility] Last Admin: 09/19/18 09:42 Dose: 100 mg Morphine Sulfate (Morphine Inj) 2 mg IV.PUSH Q2H PRN PRN Reason: PAIN SCALE 6 TO 10 Ondansetron HCl (Zofran Inj) 4 mg IV.PUSH Q6H PRN PRN Reason: NAUSEA OR VOMITING Senna/Docusate Sodium (Josie-Colace) 1 tab PO BID PENDING SALE TO [facility] Last Admin: 09/19/18 09:42 Dose: 1 tab Sennosides (Senokot) 17.2 mg PO Q12H PRN PRN Reason: Moderate Constipation Sodium Chloride (Ns Flush) 2 ml IV.FLUSH BID PENDING SALE TO [facility] Last Admin: 09/19/18 09:43 Dose: 2 ml Sodium Chloride (Ns Flush) 2 ml IV.FLUSH PRN PRN PRN Reason: FLUSH AFTER USING IV ACCESS Terazosin HCl (Hytrin) 10 mg PO DAILY JUDI Last Admin: 09/19/18 09:41 Dose: 10 mg Allergies Allergy/AdvReac Type Severity Reaction Status Date / Time No Known Allergies Allergy Verified 09/18/18 20:08 Home Medications Medication Instructions Recorded Confirmed Type amlodipine 10 mg PO DAILY 09/18/18 09/18/18 History aspirin 09/18/18 History clopidogrel 75 mg PO DAILY 09/18/18 09/18/18 History furosemide 20 mg PO DAILY 09/18/18 09/18/18 History gabapentin 300 mg PO BID 09/18/18 09/18/18 History insulin NPH and regular human 20 unit SUBCUT BID 09/18/18 09/18/18 History [Novolin 70/30 U-100 Insulin] losartan 100 mg PO DAILY 09/18/18 09/18/18 History metformin 850 mg PO BID 09/18/18 09/18/18 History terazosin 10 mg PO DAILY 09/18/18 09/18/18 History Exam Vital signs: Vital Signs 09/18/18 20:06 09/18/18 22:09 09/18/18 23:07 Temperature 98.5 F Pulse Rate 85 58 L 73 Respiratory Rate 14 18 Blood Pressure 191/80 H 200/91 H Pulse Oximetry 98 99 09/18/18 23:08 09/18/18 23:25 09/19/18 00:04 Temperature Pulse Rate 85 70 60 Respiratory Rate 16 16 16 Blood Pressure 200/91 H 228/100 H 215/98 H Pulse Oximetry 99 100 09/19/18 00:45 09/19/18 01:00 09/19/18 01:15 Temperature Pulse Rate 66 60 60 Respiratory Rate 16 16 16 Blood Pressure 200/92 H 169/76 H 164/74 H Pulse Oximetry 99 97 09/19/18 04:54 09/19/18 05:00 09/19/18 05:09 Temperature Pulse Rate 60 64 60 Respiratory Rate 18 17 17 Blood Pressure 152/73 H 148/63 H Pulse Oximetry 97 97 98 09/19/18 05:24 09/19/18 05:39 09/19/18 05:54 Temperature Pulse Rate 64 74 71 Respiratory Rate 18 17 29 H Blood Pressure 151/71 H 148/70 H 146/70 H Pulse Oximetry 97 97 98 09/19/18 06:00 09/19/18 06:09 09/19/18 06:24 Temperature Pulse Rate 74 66 66 Respiratory Rate 25 H 18 16 Blood Pressure 162/74 H 154/71 H Pulse Oximetry 97 96 98 09/19/18 06:39 09/19/18 06:54 09/19/18 07:00 Temperature Pulse Rate 62 74 67 Respiratory Rate 14 15 16 Blood Pressure 154/72 H 151/72 H Pulse Oximetry 97 97 99 09/19/18 07:09 09/19/18 07:24 09/19/18 07:39 Temperature Pulse Rate 69 61 67 Respiratory Rate 16 14 19 Blood Pressure 142/69 H 147/71 H 129/63 Pulse Oximetry 97 97 97 09/19/18 07:54 09/19/18 08:00 09/19/18 08:09 Temperature 98.4 F Pulse Rate 68 78 74 Respiratory Rate 17 15 23 Blood Pressure 146/70 H 137/68 Pulse Oximetry 98 97 97 09/19/18 08:24 09/19/18 08:39 09/19/18 08:51 Temperature Pulse Rate 69 76 86 Respiratory Rate 16 28 H 24 Blood Pressure 137/64 153/68 H Pulse Oximetry 98 100 98 09/19/18 08:54 09/19/18 09:00 09/19/18 09:09 Temperature Pulse Rate 83 73 Respiratory Rate 29 H 22 Blood Pressure 157/72 H 143/70 H Pulse Oximetry 99 98 09/19/18 09:24 09/19/18 09:39 09/19/18 09:54 Temperature Pulse Rate 65 75 80 Respiratory Rate 19 9 L 24 Blood Pressure 157/75 H 154/73 H 157/77 H Pulse Oximetry 99 100 99 09/19/18 10:00 09/19/18 10:09 Temperature Pulse Rate 92 H 83 Respiratory Rate 23 34 H Blood Pressure 137/63 Pulse Oximetry 99 98 Intake & Output 09/18/18 09/19/18 09/19/18 18:59 06:59 18:59 Intake Total 250 / 250 Output Total 1280 / 1280 Balance -1280 / -1280 250 / 250 Weight 90.2 kg Intake: IV 250 / 250 Cardene Inj 25 MG In NS Inj 240 250 / 250 ML @ 5 MG/HR 50 mls/hr IV.CONT TITRATE PRN Rx#:[id number] Output: Urine 1280 / 1280 Other: # Bowel Movements 0 Narrative: A&O x 3 CN II-XII intact Motor 5/5 UE/LE Reflexes symmetric physiologic Gait wnl Results - Laboratory Findings CBC and BMP: 09/19/18 03:10 09/19/18 03:10 Abnormal lab findings: Abnormal Labs 09/18/18 09/18/18 09/19/18 23:08 23:08 00:11 RBC 4.12 L Hgb 12.2 L Hct 37.2 L [place] % (Auto) 9.4 H Eos % (Auto) 5.1 H Eos # (Auto) 0.5 H Anion Gap 3 L Creatinine 1.35 H Estimated GFR 62 L POC Glucose 121 H Random Glucose 141 H Total Bilirubin 09/19/18 09/19/18 09/19/18 03:10 03:10 05:33 RBC 4.29 L Hgb 12.9 L Hct 38.6 L [place] % (Auto) 9.1 H Eos % (Auto) 5.3 H Eos # (Auto) 0.5 H Anion Gap Creatinine Estimated GFR 69 L POC Glucose 136 H Random Glucose 144 H Total Bilirubin 1.1 H Assessment and Plan - Plan 78yoM with hypertensive episode > 220 with small right parietal subarachnoid hemorrhage. This would be an usual location for an aneurysmal subarachnoid hemorrhage. Would be more consistent with a venous sinus thrombosis. At any rate we will order MRA head ([place]) + MRI brain (with diffusion)+ MR venogram -- will require timing adjustments of contrast and planning. Also spoke with [facility] attending -- patient can eat and would recommend a Neurology eval given unusual location of hemorrhage.
[2018-09-19] MEDS ORDERED: Gadobutrol PF 10 MMOL/10 ML Vial (for RAD) IV.SIG ONE (12:10)
--- NOTE | 2018-09-19 12:36 | MR ---
EXAM DATE: 09/19/2018 12:28 PM EST AGE/SEX: 78 years / Male INDICATIONS: CVA. Cephalgia. CLINICAL DATA: This is the patient's subsequent encounter. Patient reports that signs and symptoms h ave been present for 2 days and indicates a pain score of 3/10. MEDICAL/SURGICAL HISTORY: Diabetes. Asthma. Hypertension. Fusion, lumbar. Cholecystectomy. H ip replacement. Elbow surgery. Carpal tunnel. Penile implant. COMPARISON: [facility] [place], MRV HEAD W & W/O CONTRAST, 09/19/2018. [facility] [place], MRA HEAD W/O CONTRAST, 09/19/2018. C, CT HEAD W/O CONTRAST, 09/18/2018. . TECHNIQUE: Multiplanar, multisequence examination of the brain was performed without and with 10 ml G adavist (gadobutrol) contrast as a single exam dose. FINDINGS: Cerebrum: Small amount of acute subarachnoid hemorrhage is noted within the right parietal region. N o acute infarct is noted. No midline shift is noted. Scattered old tiny lacunar infarcts are noted wi thin the bilateral basal ganglia. Mild cerebral atrophy is noted. White Matter: Mild periventricular and subcortical white matter small vessel ischemic changes are no hugo bilaterally. Posterior Fossa: The cerebellum and brainstem are intact. The 4th ventricle is midline. The cerebel lopontine angle is unremarkable. The cerebellar tonsils are normal in position. Diffusion Imaging: No focal areas of restricted diffusion are seen. No evidence of acute infarction . Extracranial: The visualized portions of the orbits are unremarkable. Extensive mucosal thickening i s noted involving the paranasal sinuses suggesting pansinusitis. Post Contrast: No abnormal areas of parenchymal or dural enhancement. No evidence of blood-brain ba rrier breakdown. CONCLUSION: 1. Small amount of acute subarachnoid hemorrhage within the right parietal region. 2. No acute infarct, mass effect or midline shift. 3. Mild cerebral atrophy. 4. Scattered old tiny lacunar infarcts within the bilateral basal ganglia. 5. Mild periventricular and subcortical white matter small vessel ischemic changes bilaterally. 6. Extensive mucosal thickening involving the paranasal sinuses suggesting pansinusitis. Electronically signed by: Allen Guzman MD Board Certified Radiologist 09/19/2018 12:35 PM EST
--- NOTE | 2018-09-19 12:36 | MR ---
EXAM DATE: 09/19/2018 12:28 PM EST AGE/SEX: 78 years / Male INDICATIONS: Aneurysm. Cephalgia. CLINICAL DATA: This is the patient's subsequent encounter. Patient reports that signs and symptoms h ave been present for 2 days and indicates a pain score of 2/10. MEDICAL/SURGICAL HISTORY: Diabetes. Asthma. Hypertension. Fusion, lumbar. Cholecystectomy. H ip replacement. Elbow surgery. Carpal tunnel. Penile implant. COMPARISON: [facility] [place], MR HEAD W & W/O CONTRAST, 09/19/2018. [facility] [place], MRV HEAD W & W/O CONTRAST, 09/19/2018 . . TECHNIQUE: 3D [id number] MRA was performed. Source images, multiplanar STS MIP, and 3D volum e MIP reconstructions were reviewed. FINDINGS: There is excellent visualization of the major intracranial arteries out to the second-order branch ve ssels. There is no evidence for aneurysm, vessel truncation or stenosis, and no evidence for vascula r malformation. CONCLUSION: 1. Negative MRA [place] ([place]) non contrast. Electronically signed by: Allen Guzman MD Board Certified Radiologist 09/19/2018 12:35 PM EST
--- NOTE | 2018-09-19 12:38 | MR ---
EXAM DATE: 09/19/2018 12:28 PM EST AGE/SEX: 78 years / Male INDICATIONS: Cephalgia. CLINICAL DATA: This is the patient's subsequent encounter. Patient reports that signs and symptoms h ave been present for 2 days and indicates a pain score of 3/10. MEDICAL/SURGICAL HISTORY: Diabetes. Hypertension. Asthma. Fusion, lumbar. Cholecystectomy. H ip replacement. Elbow surgery. Carpal tunnel. Penile implant. [place] [facility] [place] [facility] [place], [place]. . TECHNIQUE: MR cerebral venography is performed without and with 10 ml Gadavist (gadobutrol) contrast (cumulative dose for multiple exams). Source images, 3D volume MIP, and sliding thin slab MIP recon structions were reviewed. FINDINGS: No filling defects are identified within the visualized cerebral venous sinuses. There is no evidence of venous sinus thrombosis. CONCLUSION: 1. No evidence of venous sinus thrombosis. Electronically signed by: Allen Guzman MD Board Certified Radiologist 09/19/2018 12:37 PM EST
--- NOTE | 2018-09-19 15:56 | MB ---
cc: Serina Siegel MD DATE: 09/19/2018 REASON FOR CONSULTATION: Subarachnoid hemorrhage. HISTORY OF PRESENT ILLNESS: This is a 78-year-old gentleman with a history of poorly controlled hypertension, came in and found to have elevated BP of 220 systolic. 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 He states that he was going over to the blood bank and he was told he could not donate blood because his blood pressure was too high and was told to come to the ER, but he went home, called his family member and was told to come here. He decided to drive himself here. He did not feel weak, just a little lightheaded. He had had no weakness in the arms or legs, trouble speaking or understanding. Blood pressure currently is fairly well controlled, 136 systolic range. Denies any headache, chest pain, shortness of breath. He was on multiple medications for his blood pressure, amlodipine, losartan, and also on Plavix. His antiplatelets have been stopped. He had initial CT of the head that shows an acute right parietal subarachnoid hemorrhage. Hence, he was admitted for further assessment. PAST MEDICAL HISTORY: Uncontrolled hypertension, diabetes, asthma. PAST SURGICAL HISTORY: Cholecystectomy, and some orthopedic surgery. SOCIAL HISTORY: Does not smoke or drink. PHYSICAL EXAMINATION: VITAL SIGNS: Temperature is 98.4, pulse 83, respiratory rate has been between 16 and 34. Blood pressure on admission was highest it was 228/100, currently at 137/63. NECK: Supple. No auscultated bruits. HEART: Regular. NEUROLOGIC: He is awake, alert. He is oriented. He is fluent. His pupils are reactive. Visual dacosta are full. Face is symmetrical. Tongue midline. Motor bell, he does not exhibit any weakness, drift or leg lag. Cerebellar testing normal. DTRs are 1+. Toes withdraw. Gait is withheld at this time. LABORATORY DATA: Reviewed. Hemoglobin is 12.9, platelets 194,000. COAG panel is normal. Chemistries : His glucose is 207. LFTs are normal. There is no hemoglobin A1c. GFR 69. MRSA negative screen. Staphylococcus aureus negative screen. IMAGING: His initial CT showed the possible very small, acute subarachnoid in the right parietal lobe near the vertex. Some sinus disease. MRA [place] did not show anything acute. MRI brain did show that small subarachnoid blood within the right parietal region. No acute infarct, no mass effect, no shift. There is old lacune in the basal ganglia bilaterally and periventricular white matter disease. MRV did not show any sinus thromboses. IMPRESSION: Right small subarachnoid hemorrhage, likely contributing factor at this point since all his workup was unremarkable, with uncontrolled hypertension, although somewhat odd, but there is no acute infarct noted. Fortunately MRA of the [place] was negative. MRV was negative. PLAN: I would recommend controlling his blood pressure adequately. His blood pressure medicines will need to be adjusted. Get a hemoglobin A1c. We will get an EEG and a carotid ultrasound. Hold antiplatelets obviously until the subarachnoid is reabsorbed and he will restart it at that point, once images have been negative. Continue current care. If workup is negative from my perspective, he can be discharged home once blood pressure is controlled. No further testing except what has been described in the plan per neurology. MD YOLIS Jesus/[email or web address] , 03:23 PM , 03:34 PM
--- NOTE | 2018-09-19 16:47 | US ---
EXAM DATE: 09/19/2018 4:33 PM EST AGE/SEX: 78 years / Male INDICATIONS: Cerebrovascular Accident. CLINICAL DATA: This is the patient's initial encounter. Patient reports that signs and symptoms have been present for 1 day and indicates a pain score of 0/10. MEDICAL/SURGICAL HISTORY: Asthma. Diabetes. Hypertension. Cholecystectomy. History of orthope dic surgery. COMPARISON: [facility] – [place] CAROTID ARTERIES, 09/10/2016. . VELOCITY PARAMETERS: ICA/CCA Ratio: Right 0.67 , Left 0.97 ICA: Right 114 cm/sec, Left 141 cm/sec CCA: Right 171 cm/sec, Left 145 cm/sec ECA: Right 110 cm/sec, Left 136 cm/sec Vertebral: Right 74 cm/sec antegrade, Left 60 cm/sec antegrade FINDINGS: Right Carotid: No significant plaque is visualized.The waveforms are within normal limits. Left Carotid: No significant plaque is visualized. The waveforms are within normal limits. Other: None. CONCLUSION: No hemodynamically significant carotid stenosis. Electronically signed by: Allen Guzman MD Board Certified Radiologist 09/19/2018 4:46 PM EST
--- NOTE | 2018-09-19 17:10 | ECG ---
Date Performed: 09/18/2018 Time Performed: 23:12:39 PTAGE: 78 years EKG: Sinus rhythm WITH FIRST DEGREE AV BLOCK NONSPECIFIC T-WAVE ABNORMALITY ABNORMAL ECG PREVIOUS TRACING : 10/07/2017 20.57 Since the previous tracing, no significant change noted DOCTOR: Malcolm Askew Interpretating Date/Time 09/19/2018 17:09:32
--- NOTE | 2018-09-19 17:10 | ECG ---
Date Performed: 09/19/2018 Time Performed: 06:16:37 PTAGE: 78 years EKG: ATRIAL FIBRILLATION ABNORMAL RHYTHM ECG PREVIOUS TRACING : 09/18/2018 23.12 Since the previous tracing, no significant change noted DOCTOR: Malcolm Askew Interpretating Date/Time 09/19/2018 17:09:22
[2018-09-19 22:24] LABS: Hemoglobin A1c 6.1 % (4.3-6.0)
[2018-09-20] MEDS: Insulin NovoLOG Aspart Correctional Sugar Inj SQ SCH ×4 (00:24→18:02)
[2018-09-20] MEDS: niCARdipine Inj 25 MG in Sodium Chlor 0.9% Inj 240 ML IV.CONT PRN ×2 (01:47→07:37)
[2018-09-20] MEDS: Sod Chloride 0.9% Inj 1,000 ML IV.CONT SCH ×3 (03:44→23:07)
[2018-09-20] MEDS: Chlorhexidine Gluconate 2% 1 Pack (2 Cloths) TOPICAL SCH (03:45)
[2018-09-20] MEDS: Gabapentin 300 MG Capsule PO SCH ×2 (08:36→22:55)
[2018-09-20] MEDS: Senna/Docusate Sodium 8.6/50 MG Tablet PO SCH ×2 (08:36→23:03)
[2018-09-20] MEDS: Furosemide 20 MG Tablet PO SCH (08:36)
[2018-09-20] MEDS: amLODIPine 10 MG Tablet PO SCH (08:36)
[2018-09-20] MEDS: Famotidine PF Inj 20 MG/2 ML Vial IV.PUSH SCH ×2 (08:37→22:56)
--- NOTE | 2018-09-20 10:12 | P.PNCC ---
Subjective Subjective Remarks/Hospital Course: 09/18: 78 year old male presents with a complaint of uncontrolled hypertension. The patient reports that he went to go and donate blood and he was told that he could not donate blood because his blood pressure was too high. Patient reports his blood pressures were in the 220s, reports that he has not been feeling dizzy but has been feeling "woozy in the head," reports that his head felt "dull." Patient does take multiple medications for his hypertension including amlodipine as well as losartan, he is also on antiplatelet, Plavix. Reports that he has been compliant. Patient with no chest pain or shortness of breath, no other complaints. CT of the head obtained in the emergency department shows possible very small volume acute subarachnoid hemorrhage involving the right parietal lobe near the vertex. The patient has been admitted to [facility] with a neurosurgical consultation in place. 09/19: Resting comfortably in bed. Completely awake and alert. Denies any headache. On Cardene drip. Moving all extremities. Feeling hungry. 09/20: Resting comfortably. Awake and alert. Tolerating diet. Off nicardipine drip Objective Vital Signs / I&O: Vital Signs 09/19/18 10:09 09/19/18 10:24 09/19/18 10:39 Temperature Pulse Rate 83 80 86 Respiratory Rate 34 H 16 14 Blood Pressure 137/63 131/69 133/64 Pulse Oximetry 98 96 95 09/19/18 10:54 09/19/18 11:00 09/19/18 11:09 Temperature Pulse Rate 83 86 81 Respiratory Rate 14 14 16 Blood Pressure 137/63 131/59 L Pulse Oximetry 95 95 97 09/19/18 11:18 09/19/18 12:20 09/19/18 12:22 Temperature 98.3 F Pulse Rate 93 H 88 Respiratory Rate 23 25 H Blood Pressure 136/60 Pulse Oximetry 09/19/18 13:00 09/19/18 13:42 09/19/18 14:00 Temperature Pulse Rate 83 85 87 Respiratory Rate 29 H 30 H 22 Blood Pressure 134/63 128/65 Pulse Oximetry 98 98 09/19/18 15:00 09/19/18 16:00 09/19/18 17:00 Temperature Pulse Rate 69 81 78 Respiratory Rate 28 H 39 H 48 H Blood Pressure 136/63 128/60 146/73 H Pulse Oximetry 96 99 98 09/19/18 18:00 09/19/18 18:02 09/19/18 19:00 Temperature Pulse Rate 93 H 94 H 79 Respiratory Rate 34 H 31 H 17 Blood Pressure 127/65 133/63 Pulse Oximetry 96 97 96 09/19/18 20:00 09/19/18 21:00 09/19/18 22:00 Temperature 98.4 F Pulse Rate 76 75 74 Respiratory Rate 33 H 19 18 Blood Pressure 125/56 L 140/63 141/67 H Pulse Oximetry 98 98 97 09/19/18 23:00 09/19/18 23:04 09/20/18 00:00 Temperature 98.3 F Pulse Rate 78 77 69 Respiratory Rate 22 34 H 14 Blood Pressure 142/69 H 140/63 Pulse Oximetry 97 98 95 09/20/18 01:00 09/20/18 02:00 09/20/18 03:00 Temperature Pulse Rate 69 66 70 Respiratory Rate 14 15 14 Blood Pressure 137/62 129/58 L 134/61 Pulse Oximetry 95 95 97 09/20/18 04:00 09/20/18 05:00 09/20/18 06:00 Temperature 98.6 F Pulse Rate 64 68 77 Respiratory Rate 13 16 23 Blood Pressure 122/56 L 134/63 138/69 Pulse Oximetry 94 L 94 L 93 L 09/20/18 07:00 09/20/18 07:28 09/20/18 08:00 Temperature 98.1 F Pulse Rate 84 68 76 Respiratory Rate 33 H 20 24 Blood Pressure 134/82 130/72 Pulse Oximetry 95 98 96 09/20/18 08:48 Temperature Pulse Rate 80 Respiratory Rate 21 Blood Pressure 131/62 Pulse Oximetry 100 Intake & Output 09/19/18 09/20/18 09/20/18 18:59 06:59 18:59 Intake Total 2220 / 2220 1989 Output Total 1400 / 1400 520 / 520 Balance 820 / 820 1470 / 1470 Weight 91.4 kg Intake: IV 1500 / 1500 1750 / 1750 NS Inj 1,000 ML @ 84 mls/hr IV. 1000 / 1000 1000 / 1000 CONT .[id number] [facility] Rx#:[id number] Cardene Inj 25 MG In NS Inj 240 500 / 500 750 / 750 ML @ 5 MG/HR 50 mls/hr IV.CONT TITRATE PRN Rx#:[id number] Oral 720 / 720 240 / 240 Output: Urine 1400 / 1400 520 / 520 Other: # Voids 5 # Bowel Movements 0 0 Result Diagrams: 09/19/18 03:10 09/19/18 03:10 Imaging: Head CT 09/18/18 22:33 CONCLUSION: 1. Possible very small volume acute subarachnoid hemorrhage involving the right parietal lobe near the vertex. 2. Chronic ramos sinus disease. . Carotid Doppler Study 09/19/18 00:00 CONCLUSION: No hemodynamically significant carotid stenosis. Head MRI 09/19/18 00:00 CONCLUSION: 1. Small amount of acute subarachnoid hemorrhage within the right parietal region. 2. No acute infarct, mass effect or midline shift. 3. Mild cerebral atrophy. 4. Scattered old tiny lacunar infarcts within the bilateral basal ganglia. 5. Mild periventricular and subcortical white matter small vessel ischemic changes bilaterally. 6. Extensive mucosal thickening involving the paranasal sinuses suggesting pansinusitis. Head MRA 09/19/18 00:00 CONCLUSION: 1. Negative MRA [place] ([place]) non contrast. Head/Brain Mag Res Venography 09/19/18 00:00 CONCLUSION: 1. No evidence of venous sinus thrombosis. Objective Remarks: HEENT/Neuro: No pallor or icterus, tongue moist, ASHWINI, Awake alert oriented 3 , nonfocal grossly, moving all 4 extremities Neck: No JVD Chest/pulmonary: CTA bilaterally Cardiovascular: S1-S2 regular no gallop or murmur GI/abdomen: Soft, nontender, bowel sounds present Extremities: Warm bilaterally, no edema Assessment and Plan - Assessment and Plan Plan: Subarachnoid bleed -Neurochecks per unit protocol -Neurosurgical consultation -Coags -Platelet count above 190 -Hold aspirin and Plavix -MRI MRA MRV unremarkable -Neurosurgery/neurology consult noted -SBP goal less than 140 Hypertension -Off nicardipine drip -SBP goal less than 140 due to possible ICH -Resumed home meds Diabetes mellitus -Holding metformin -Insulin sliding scale -Resume metformin tomorrow History of asthma -DuoNeb's as needed DVT GI prophylaxis -Teds SCDs -No pharmacological DVT prophylaxis due to possible ICH -Pepcid Consult and transfer to hospitalist service for further medical management.
--- NOTE | 2018-09-20 11:59 | P.PNNS ---
Subjective Interval history: neuro stable overnight, feeling better, no new complaints Physical Exam Vital signs: Vital Signs 09/19/18 12:20 09/19/18 12:22 09/19/18 13:00 Temperature 98.3 F Pulse Rate 88 83 Respiratory Rate 25 H 29 H Blood Pressure 136/60 Pulse Oximetry 09/19/18 13:42 09/19/18 14:00 09/19/18 15:00 Temperature Pulse Rate 85 87 69 Respiratory Rate 30 H 22 28 H Blood Pressure 134/63 128/65 136/63 Pulse Oximetry 98 98 96 09/19/18 16:00 09/19/18 17:00 09/19/18 18:00 Temperature Pulse Rate 81 78 93 H Respiratory Rate 39 H 48 H 34 H Blood Pressure 128/60 146/73 H Pulse Oximetry 99 98 96 09/19/18 18:02 09/19/18 19:00 09/19/18 20:00 Temperature 98.4 F Pulse Rate 94 H 79 76 Respiratory Rate 31 H 17 33 H Blood Pressure 127/65 133/63 125/56 L Pulse Oximetry 97 96 98 09/19/18 21:00 09/19/18 22:00 09/19/18 23:00 Temperature Pulse Rate 75 74 78 Respiratory Rate 19 18 22 Blood Pressure 140/63 141/67 H Pulse Oximetry 98 97 97 09/19/18 23:04 09/20/18 00:00 09/20/18 01:00 Temperature 98.3 F Pulse Rate 77 69 69 Respiratory Rate 34 H 14 14 Blood Pressure 142/69 H 140/63 137/62 Pulse Oximetry 98 95 95 09/20/18 02:00 09/20/18 03:00 09/20/18 04:00 Temperature 98.6 F Pulse Rate 66 70 64 Respiratory Rate 15 14 13 Blood Pressure 129/58 L 134/61 122/56 L Pulse Oximetry 95 97 94 L 09/20/18 05:00 09/20/18 06:00 09/20/18 07:00 Temperature Pulse Rate 68 77 84 Respiratory Rate 16 23 33 H Blood Pressure 134/63 138/69 Pulse Oximetry 94 L 93 L 95 09/20/18 07:28 09/20/18 08:00 09/20/18 08:48 Temperature 98.1 F Pulse Rate 68 76 80 Respiratory Rate 20 24 21 Blood Pressure 134/82 130/72 131/62 Pulse Oximetry 98 96 100 09/20/18 09:00 09/20/18 09:30 09/20/18 10:00 Temperature Pulse Rate 95 H 68 73 Respiratory Rate 27 H 26 H 97 H Blood Pressure 135/70 127/62 151/69 H Pulse Oximetry 100 100 100 09/20/18 10:27 09/20/18 10:30 09/20/18 11:00 Temperature Pulse Rate 87 78 61 Respiratory Rate 46 H 59 H 35 H Blood Pressure 144/70 H 147/71 H 146/72 H Pulse Oximetry 100 100 100 Intake & Output 09/19/18 09/20/18 09/20/18 18:59 06:59 18:59 Intake Total 2220 / 2220 1989 Output Total 1400 / 1400 520 / 520 Balance 820 / 820 1470 / 1470 Weight 91.4 kg Intake: IV 1500 / 1500 1750 / 1750 NS Inj 1,000 ML @ 84 mls/hr IV. 1000 / 1000 1000 / 1000 CONT .[id number] [facility] Rx#:[id number] Cardene Inj 25 MG In NS Inj 240 500 / 500 750 / 750 ML @ 5 MG/HR 50 mls/hr IV.CONT TITRATE PRN Rx#:[id number] Oral 720 / 720 240 / 240 Output: Urine 1400 / 1400 520 / 520 Other: # Voids 5 # Bowel Movements 0 0 Narrative: A&O x 3 NAD Speech fluent CN II-XII intact Motor 5/5 UE/LE Assessment and Plan - Plan 78yoM with hypertensive episode > 220 with small right parietal subarachnoid hemorrhage. This would be an usual location for an aneurysmal subarachnoid hemorrhage. Would be more consistent with a venous sinus thrombosis. At any rate we will order MRA head ([place]) + MRI brain (with diffusion)+ MR venogram -- will require timing adjustments of contrast and planning. Also spoke with [facility] attending -- patient can eat and would recommend a Neurology eval given unusual location of hemorrhage. 09/20/18 MRI Brain with stable small acute SAH right parietal, MRV Head negative for venous thrombosis, MRA Head also negative patient is stable neurologically cont critical care management he is clear for discharge from [facility] standpoint if blood pressure is controlled follow up in office in 6 weeks with f/u head CT
[2018-09-21] MEDS: Insulin NovoLOG Aspart Correctional Sugar Inj SQ SCH ×3 (00:42→13:33)
[2018-09-21] MEDS: Chlorhexidine Gluconate 2% 1 Pack (2 Cloths) TOPICAL SCH (06:15)
[2018-09-21] MEDS: Famotidine PF Inj 20 MG/2 ML Vial IV.PUSH SCH ×2 (09:00→22:02)
[2018-09-21] MEDS: Furosemide 20 MG Tablet PO SCH (09:00)
[2018-09-21] MEDS: Gabapentin 300 MG Capsule PO SCH ×2 (09:01→22:03)
[2018-09-21] MEDS: amLODIPine 10 MG Tablet PO SCH (09:01)
[2018-09-21] MEDS: Senna/Docusate Sodium 8.6/50 MG Tablet PO SCH ×2 (09:02→22:08)
--- NOTE | 2018-09-21 09:38 | MG ---
cc: Jer Reynolds MD ELECTROENCEPHALOGRAM RECORD NUMBER: [id number] DESCRIPTION: A 5-6 Hz posterior rhythm. Good EEG variability and reactivity. Progressive slowing with transition into drowsy stage REM sleep. Stage II sleep with spindle activity. Reasonable driving with photic stimulation. Single lead EKG showing sinus rhythm. INTERPRETATION: Minimal encephalopathy in sleep state. Clinical correlation. Jer Reynolds MD MG/sv , 08:25 AM , 08:29 AM
[2018-09-21] MEDS ORDERED: Metoprolol Tartrate 25 MG Tablet PO SCH (10:00)
[2018-09-21] MEDS: Sod Chloride 0.9% Inj 1,000 ML IV.CONT SCH (13:33)
--- NOTE | 2018-09-21 14:45 | P.PNIM ---
Subjective Interval history: Patient seen earlier today. BP not at goal yet. He denies headache or focal weakness. Physical Exam Vital signs: Vital Signs 09/20/18 15:00 09/20/18 15:14 09/20/18 15:30 Temperature Pulse Rate 65 83 69 Respiratory Rate 45 H 51 H 33 H Blood Pressure 135/71 141/72 H Pulse Oximetry 100 92 L 100 09/20/18 16:00 09/20/18 16:30 09/20/18 17:00 Temperature Pulse Rate 74 80 72 Respiratory Rate 23 17 28 H Blood Pressure 127/60 146/80 H 133/61 Pulse Oximetry 100 100 100 09/20/18 17:30 09/20/18 20:00 09/20/18 22:00 Temperature 98.0 F Pulse Rate 77 69 Respiratory Rate 55 H 20 Blood Pressure 124/68 158/75 H Pulse Oximetry 100 99 94 L 09/21/18 00:00 09/21/18 00:06 09/21/18 04:00 Temperature 98.0 F 97.8 F Pulse Rate 72 64 Respiratory Rate 20 20 Blood Pressure 175/81 H 155/72 H Pulse Oximetry 100 97 100 09/21/18 06:00 09/21/18 07:54 09/21/18 08:00 Temperature 97.8 F 97.6 F Pulse Rate 64 67 Respiratory Rate 20 18 Blood Pressure 155/72 H 150/71 H Pulse Oximetry 100 100 100 09/21/18 11:47 09/21/18 12:01 Temperature 97.4 F L Pulse Rate 64 Respiratory Rate 18 Blood Pressure 124/59 L Pulse Oximetry 97 97 Intake & Output 09/20/18 09/21/18 09/21/18 18:59 06:59 18:59 Intake Total 1720 / 1720 1320 / 1320 1210 / 1210 Output Total 1825 / 1825 Balance -105 / -105 1320 / 1320 1210 / 1210 Intake: IV 1000 / 1000 1000 / 1000 970 / 970 NS Inj 1,000 ML @ 84 mls/hr IV. 1000 / 1000 1000 / 1000 970 / 970 CONT .[id number] [facility] Rx#:[id number] Oral 720 / 720 320 / 320 240 / 240 Output: Urine 1825 / 1825 Other: # Voids 5 3 Date of Last Bowel Movement 09/20/18 09/20/18 # Bowel Movements 1 Narrative: GENERAL: This is a well-nourished, well-developed patient, in no apparent distress. CARDIOVASCULAR: Normal rate and regular rhythm without murmurs, gallops, or rubs. RESPIRATORY: Good respiratory efforts. Breath sounds equal and clear to auscultation bilaterally. GASTROINTESTINAL: Abdomen soft, non-tender, non-distended. Normal active bowel sounds MUSCULOSKELETAL: Extremities without cyanosis, or edema. NEURO: Alert & Oriented x4 to person, place, time, situation. Moves all ext x4 PSYCH: Appropriate mood and affect. Results Labs CBC & Chem 7: 09/19/18 03:10 09/19/18 03:10 Assessment and Plan Plan 78-year-old male with uncontrolled hypertension admitted with subarachnoid hemorrhage. Patient treated conservatively. Subarachnoid bleed -Appreciate neurosurgery input. Treat conservatively with management of blood pressure. -Platelet count above 190 -Hold aspirin and Plavix -MRI MRA MRV unremarkable -Neurosurgery/neurology consult noted -SBP goal less than 140. Blood pressure not yet at goal. Add metoprolol 12.5 mg twice daily Hypertension -Off nicardipine drip -SBP goal less than 140 due to possible ICH -Continue losartan, amlodipine. Add metoprolol Diabetes mellitus -Hemoglobin A1c 6.1. Discontinue sliding scale insulin with Accu-Cheks. Resume metformin History of asthma -DuoNeb's as needed DVT GI prophylaxis -Teds SCDs -No pharmacological DVT prophylaxis due to possible ICH -Pepcid Plan to discharge home once blood pressure is at goal <140/90
[2018-09-22] MEDS: Chlorhexidine Gluconate 2% 1 Pack (2 Cloths) TOPICAL SCH (05:10)
[2018-09-22] MEDS: Furosemide 20 MG Tablet PO SCH (09:09)
[2018-09-22] MEDS: Gabapentin 300 MG Capsule PO SCH (09:10)
[2018-09-22] MEDS: amLODIPine 10 MG Tablet PO SCH (09:10)
[2018-09-22] MEDS: Famotidine PF Inj 20 MG/2 ML Vial IV.PUSH SCH ×2 (09:10→20:48)
[2018-09-22] MEDS: Senna/Docusate Sodium 8.6/50 MG Tablet PO SCH ×2 (11:57→20:48)
--- NOTE | 2018-09-22 15:49 | P.PNIM ---
Subjective Interval history: Blood pressure still not optimal. Patient had an episode of AV block overnight. Cardiology consulted. He has no complaints today. Physical Exam Vital signs: Vital Signs 09/21/18 15:55 09/21/18 20:00 09/21/18 20:50 Temperature 98 F 98.2 F Pulse Rate 60 61 63 Respiratory Rate 18 20 Blood Pressure 118/73 145/91 H Pulse Oximetry 100 100 09/22/18 00:00 09/22/18 02:14 09/22/18 04:00 Temperature 98.1 F Pulse Rate 59 L 66 52 L Respiratory Rate 20 Blood Pressure 151/65 H Pulse Oximetry 100 09/22/18 04:53 09/22/18 07:32 09/22/18 08:24 Temperature 98.1 F 97.4 F L Pulse Rate 72 54 L Respiratory Rate 20 18 Blood Pressure 148/70 H 141/67 H Pulse Oximetry 100 97 97 09/22/18 12:11 Temperature 97.7 F Pulse Rate 81 Respiratory Rate 18 Blood Pressure 148/74 H Pulse Oximetry 95 Intake & Output 09/21/18 09/22/18 09/22/18 18:59 06:59 18:59 Intake Total 3370 / 3370 240 / 240 Balance 3370 / 3370 240 / 240 Weight 90.7 kg Intake: IV 970 / 970 NS Inj 1,000 ML @ 84 mls/hr IV. 970 / 970 CONT .[id number] [facility] Rx#:[id number] Oral 2400 / 2400 240 / 240 Other: # Voids 1 3 Date of Last Bowel Movement 09/20/18 09/21/18 09/21/18 Narrative: GENERAL: This is a well-nourished, well-developed patient, in no apparent distress. CARDIOVASCULAR: Normal rate and regular rhythm without murmurs, gallops, or rubs. RESPIRATORY: Good respiratory efforts. Breath sounds equal and clear to auscultation bilaterally. GASTROINTESTINAL: Abdomen soft, non-tender, non-distended. Normal active bowel sounds MUSCULOSKELETAL: Extremities without cyanosis, or edema. NEURO: Alert & Oriented x4 to person, place, time, situation. Moves all ext x4 PSYCH: Appropriate mood and affect. Results Labs CBC & Chem 7: 09/19/18 03:10 09/19/18 03:10 Assessment and Plan Plan 78-year-old male with uncontrolled hypertension admitted with subarachnoid hemorrhage. Patient treated conservatively. Subarachnoid bleed -Appreciate neurosurgery input. Treat conservatively with management of blood pressure. -Platelet count above 190 -Hold aspirin and Plavix -MRI MRA MRV unremarkable -Neurosurgery/neurology consult noted -SBP goal less than 140. Blood pressure not yet at goal. Had AV block with metoprolol which was discontinued. Hypertension -Off nicardipine drip -SBP goal less than 140 due to possible ICH -Continue losartan, Lasix, amlodipine. Metoprolol discontinued due to AV block. Add hydralazine. Continue to monitor. Clonidine as needed. 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 This was discontinued. - Appreciate Cardiology input. Diabetes mellitus -Hemoglobin A1c 6.1. Discontinue sliding scale insulin with Accu-Cheks. Resume metformin History of asthma -DuoNeb's as needed DVT GI prophylaxis -Teds SCDs -No pharmacological DVT prophylaxis due to possible ICH -Pepcid Plan to discharge home once blood pressure is at goal <140/90.
--- NOTE | 2018-09-22 15:54 | MB ---
cc: Matilde Patton MD DATE: 09/22/2018 REASON FOR CONSULTATION: AV block, uncompensated high blood pressure. HISTORY OF PRESENT ILLNESS: Mr. Askew is a 78-year-old gentleman with a history of morbid obesity, high blood pressure, was going to give a blood donation and then he was found with uncompensated high blood pressure. His blood pressure was around 200. He went home, felt dizzy and lost equilibrium. He was brought to the emergency room. Blood pressure was still high. Subarachnoid hemorrhage was diagnosed. Blood pressure subsequently controlled. He is on beta hammad. There was some issue about possible AV block. I was consulted for further evaluation and management. The chart was reviewed. The patient was evaluated. PAST SURGICAL HISTORY: None reported. SOCIAL HISTORY: Negative for smoking and drinking. FAMILY HISTORY: Noncontributory to his current medical condition. CURRENT MEDICATIONS: 1. Acetaminophen. 2. Amlodipine 10 mg a day. 3. Lasix 20 mg a day. 4. Famotidine 20 mg every 12 hours. 5. Neurontin 300 mg twice a day. 6. Lactulose 100 mg a day. 7. Magnesium. 8. Metoprolol, he was on 12.5 mg twice a day and this was discontinued. 9. Glucophage 850 mg twice a day. 10. Zofran. 11. Hytrin 10 mg a day. REVIEW OF SYSTEMS: Currently, the patient has no chest pain, no chest discomfort. No fever. PHYSICAL EXAMINATION: GENERAL: Alert, fully oriented. VITAL SIGNS: Blood pressure on evaluation 148/74, pulse 81, respiratory rate 18. LUNGS: Ventilated. CARDIOVASCULAR: S1, S2 noted. There is a systolic ejection murmur 2/6. ABDOMEN: Soft, obese. No masses. EXTREMITIES: No edema. DIAGNOSTIC DATA: Electrocardiogram indicates sinus rhythm. There is a first-degree AV block. LABORATORY DATA: Hemoglobin 12.9, white blood cell 9.2. ASSESSMENT AND RECOMMENDATIONS: Mr. Askew is currently stable. Blood pressure controlled. No chest pain. There is a first-degree AV block, no significant AV block at this point. His blood pressure is under control. He is on amlodipine. If necessary, hydrochlorothiazide can be added. At this point, my recommendation is to continue current management. The patient may need a 2D echo to evaluate wall motion and valvular function. Follow up in the morning by Dr. Mills. I will be available on a p.r.n. basis. Matilde Patton MD / , 03:06 PM , 03:14 PM
[2018-09-22] MEDS: hydrALAZINE 25 MG Tablet PO SCH (18:48)
[2018-09-22] MEDS ORDERED: Gabapentin 300 MG Capsule PO SCH (21:00)
[2018-09-23] MEDS: Chlorhexidine Gluconate 2% 1 Pack (2 Cloths) TOPICAL SCH (05:27)
[2018-09-23] MEDS: Furosemide 20 MG Tablet PO SCH (08:34)
[2018-09-23] MEDS: amLODIPine 10 MG Tablet PO SCH (08:35)
[2018-09-23] MEDS: hydrALAZINE 25 MG Tablet PO SCH ×2 (08:35→14:07)
[2018-09-23] MEDS: Senna/Docusate Sodium 8.6/50 MG Tablet PO SCH (08:35)
[2018-09-23] MEDS: Famotidine PF Inj 20 MG/2 ML Vial IV.PUSH SCH (08:35)
--- NOTE | 2018-09-23 13:11 | ECHRPT ---
Indication: CVA/TIA CONCLUSIONS Normal left ventricular size. Mild concentric left ventricular hypertrophy. The left ventricular systolic function is normal with an estimated ejection fraction in the range of 55-60%. [id number]-lqgs mitral valve regurgitation. Mild thickening of the aortic valve leaflets. The estimated pulmonary arterial pressure is 35 mmHg. There is mild tricuspid valve regurgitation. BP: / HR: Rhythm: MEASUREMENTS (Male / Female) Normal Values Technical Quality: 2D ECHO LV Diastolic Diameter PLAX 3.6 cm 4.2 - 5.9 / 3.9 - 5.3 cm LV Systolic Diameter PLAX 2.7 cm IVS Diastolic Thickness 1.4 cm 0.6 - 1.0 / 0.6 - 0.9 cm LVPW Diastolic Thickness 1.5 cm 0.6 - 1.0 / 0.6 - 0.9 cm LV Relative Wall Thickness 0.8 RV Internal Dim ED PLAX 3.4 cm LVOT Diameter 1.9 cm Aortic Root Diameter 3.2 cm LA Systolic Diameter LX 3.8 cm 3.0 - 4.0 / 2.7 - 3.8 cm M-MODE Aortic Root Diameter MM 3.1 cm LA Systolic Diameter MM 3.3 cm LA Ao Ratio MM 1.1 AV Cusp Separation MM 1.6 cm DOPPLER AV Peak Velocity 220.0 cm/s AV Peak Gradient 19.4 mmHg LVOT Peak Velocity 123.0 cm/s LVOT Peak Gradient 6.1 mmHg AV Area Cont Eq pk 1.6 cm Mitral E Point Velocity 71.1 cm/s Mitral A Point Velocity 106.0 cm/s Mitral E to A Ratio 0.7 LV E' Lateral Velocity 5.5 cm/s Mitral E to LV E' Lateral Ratio 13.0 LV E' Septal Velocity 6.3 cm/s Mitral E to LV E' Septal Ratio 11.2 TR Peak Velocity 252.0 cm/s TR Peak Gradient 25.4 mmHg Right Atrial Pressure 10.0 mmHg Pulmonary Artery Systolic Pressu 35.4 mmHg Right Ventricular Systolic Press 35.4 mmHg PV Peak Velocity 103.0 cm/s PV Peak Gradient 4.2 mmHg FINDINGS LEFT VENTRICLE Normal left ventricular size. Mild concentric left ventricular hypertrophy. The left ventricular systolic function is normal with an estimated ejection fraction in the range of 55-60%. RIGHT VENTRICLE Normal right ventricular size and systolic function. LEFT ATRIUM The left atrial size is normal. RIGHT ATRIUM The right atrial size is normal. ATRIAL SEPTUM Normal atrial septal thickness without atrial level shunting by limited color doppler interrogation. AORTA The aortic root and proximal ascending aorta are normal in size on limited imaging. MITRAL VALVE Uksav-pb-pial mitral valve regurgitation. AORTIC VALVE Mild thickening of the aortic valve leaflets. TRICUSPID VALVE The estimated pulmonary arterial pressure is 35 mmHg. There is mild tricuspid valve regurgitation. PULMONARY VALVE No pulmonary valve regurgitation or stenosis. VESSELS The inferior vena cava is normal in size. PERICARDIUM No pericardial effusion. Oma Dickson MD, FACC (Electronically Signed) Final Date:23 September 2018 13:10
--- NOTE | 2018-09-23 14:05 | P.DS ---
DS: Providers Date of admission: 09/18/18 23:32 Primary care physician: UNKNOWN Consults: 09/18/18 23:43 Consult to Neurosurgery Routine Consulting Provider: Froylan Mckoy Reason for Consultation: Possible SAH? Notified:: Physician Spoke with:: DR MCKOY Date Notified:: 09/19/18 Time Notified:: 03:05 Comments:: ALTHOUGH THIS WAS ADDED TO DR MCKOY'S LIST ON 09/18 @ [id number] - INFORMATION PROVIDED TO DR MCKOY ON 09/19 @ 0304 Ordering Provider: MAXI 09/18/18 23:58 HUB Only Consult Order Routine Consulting Provider: Muriel Llamas 09/19/18 08:27 Consult to Neurology Routine Consulting Provider: Serina Siegel Reason for Consultation: cortical SAH Notified:: Office Spoke with:: Laura Date Notified:: 09/19/18 Time Notified:: 08:37 Ordering Provider: DINH 09/20/18 10:03 Consult to Hospitalist Routine Consulting Provider: Nain Childress Reason for Consultation: Consult and transfer to hospitalist service for medical management. Critical care will be signing off, please reconsult if needed Notified:: Service Spoke with:: LATASHA Date Notified:: 09/20/18 Time Notified:: 10:10 Comments:: WAITNG ARCHITECTURE INSTRUCTOR BACK Ordering Provider: DINH 09/21/18 18:27 Consult to Cardiology Routine Consulting Provider: Matilde Patton Does the patient have a Hardware Designer who follows them?: Yes Preferred Manager Commercial:: Temporary Office Assistant Physician Reason for Consultation: Intermittent heart block. Notified:: Service Spoke with:: paramjit Date Notified:: 09/22/18 Time Notified:: 00:17 Comments:: The patient has been seeing Dr. Mills Ordering Provider: TESFAYE Brief History from admission: HPI as documented by the admitting physician: 78 year old male presents with a complaint of uncontrolled hypertension. The patient reports that he went to go and donate blood and he was told that he could not donate blood because his blood pressure was too high. Patient reports his blood pressures were in the 220s, reports that he has not been feeling dizzy but has been feeling "woozy in the head," reports that his head felt "dull." Patient does take multiple medications for his hypertension including amlodipine as well as losartan, he is also on antiplatelet, Plavix. Reports that he has been compliant. Patient with no chest pain or shortness of breath, no other complaints. CT of the head obtained in the emergency department shows possible very small volume acute subarachnoid hemorrhage involving the right parietal lobe near the vertex. The patient has been admitted to [facility] with a neurosurgical consultation in place. Patient update on day of discharge: Patient reports he is feeling great today. Denies any headache or change in vision. No focal weakness. Eager to go home. DS: Summary 78-year-old male with uncontrolled hypertension admitted with subarachnoid hemorrhage. Patient treated conservatively. Evaluation and treatment course detailed below: Subarachnoid bleed -Appreciate neurosurgery input. Treat conservatively with management of blood pressure. -Platelet count above 190 -Hold aspirin and Plavix -MRI MRA MRV unremarkable -Neurosurgery/neurology consult noted -SBP goal less than 140. Antihypertensives were adjusted. Had AV block with metoprolol which was discontinued. The patient was asymptomatic by the time of discharge. His blood pressure controlled. Hypertension -Off nicardipine drip -SBP goal less than 140 due to possible ICH -Continue losartan, Lasix, amlodipine. Metoprolol discontinued due to AV block. Hydralazine was added. He was given prescriptions on discharge. He is advised to follow-up outpatient with PCP. 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 This was discontinued. - Appreciate Cardiology input. 2D echocardiogram revealed mild aortic valve sclerosis and mild regurgitation. BP better controlled. He will follow-up outpatient with cardiology. Diabetes mellitus -Hemoglobin A1c 6.1. Discontinue sliding scale insulin with Accu-Cheks. Resume metformin History of asthma -DuoNeb's as needed Time Spent with Patient Total time spent providing and/or coordinating discharge services: Greater than 30 minutes Exam Narrative Exam Narrative: GENERAL: This is a well-nourished, well-developed patient, in no apparent distress. CARDIOVASCULAR: Normal rate and regular rhythm without murmurs, gallops, or rubs. RESPIRATORY: Good respiratory efforts. Breath sounds equal and clear to auscultation bilaterally. GASTROINTESTINAL: Abdomen soft, non-tender, non-distended. Normal active bowel sounds MUSCULOSKELETAL: Extremities without cyanosis, or edema. NEURO: Alert & Oriented x4 to person, place, time, situation. Moves all ext x4 PSYCH: Appropriate mood and affect. Results Labs on day of discharge: Labs from last 24 hours 09/23/18 08:37 POC Glucose 101 Impressions ITS Impressions Head CT 09/18/18 22:33 CONCLUSION: 1. Possible very small volume acute subarachnoid hemorrhage involving the right parietal lobe near the vertex. 2. Chronic ramos sinus disease. . Carotid Doppler Study 09/19/18 00:00 CONCLUSION: No hemodynamically significant carotid stenosis. Head MRI 09/19/18 00:00 CONCLUSION: 1. Small amount of acute subarachnoid hemorrhage within the right parietal region. 2. No acute infarct, mass effect or midline shift. 3. Mild cerebral atrophy. 4. Scattered old tiny lacunar infarcts within the bilateral basal ganglia. 5. Mild periventricular and subcortical white matter small vessel ischemic changes bilaterally. 6. Extensive mucosal thickening involving the paranasal sinuses suggesting pansinusitis. Head MRA 09/19/18 00:00 CONCLUSION: 1. Negative MRA [place] ([place]) non contrast. Head/Brain Mag Res Venography 09/19/18 00:00 CONCLUSION: 1. No evidence of venous sinus thrombosis. Discharge Plan Discharge Disposition Patient Disposition: Discharge Home Discharge Condition Condition: Stable Discharge Order Discharge Orders: Discharge Order (Routine); Ordered 09/23/18 Ordered By: Nain Childress Physicians Team Primary Care Provider: UNKNOWN, Attending Provider: Nain Childress Other Providers: Muriel Llamas ; Froylan Mckoy ; Serina Siegel ; Matilde Patton Rxs /Orders / Referrals /Forms Prescriptions: New hydralazine 25 mg Tablet 25 mg PO TID 30 Days Qty: 90 RF: 0 Continue metformin 850 mg Tablet 850 mg PO BID RF: 0 insulin NPH and regular human [Novolin 70/30 U-100 Insulin] 100 unit/mL (70-30 ) Suspension 20 unit SUBCUT BID RF: 0 amlodipine 10 mg Tablet 10 mg PO DAILY RF: 0 gabapentin 300 mg Capsule 300 mg PO BID RF: 0 furosemide 20 mg Tablet 20 mg PO DAILY RF: 0 losartan 100 mg Tablet 100 mg PO DAILY RF: 0 terazosin 10 mg Capsule 10 mg PO DAILY RF: 0 Discontinued aspirin 325 mg Tablet RF: 0 clopidogrel 75 mg Tablet 75 mg PO DAILY RF: 0 Referrals: Froylan Mckoy MD [Physician] - 10/31/18 11:30 am (follow up in 6 week [facility] office with follow up CT Head order to [facility]) UNKNOWN, [Primary Care Provider] - See Instructions (Please call [facility] to schedule appt. [facility] B[id number] ) Discharge Instructions Patient Printed Instructions: Hydralazine (By mouth) Status ED Status: Left Department Discharge Information Discharge Date/Time: 09/23/18 14:52
--- NOTE | 2018-09-23 23:48 | P.PNCA ---
Subjective Interval history: No events overnight Blood pressure better controlled Medications and Allergies Allergies Allergy/AdvReac Type Severity Reaction Status Date / Time No Known Allergies Allergy Verified 09/18/18 20:08 Home Medications Medication Instructions Recorded Confirmed Type amlodipine 10 mg PO DAILY 09/18/18 09/18/18 History furosemide 20 mg PO DAILY 09/18/18 09/18/18 History gabapentin 300 mg PO BID 09/18/18 09/18/18 History insulin NPH and regular human 20 unit SUBCUT BID 09/18/18 09/18/18 History [Novolin 70/30 U-100 Insulin] losartan 100 mg PO DAILY 09/18/18 09/18/18 History metformin 850 mg PO BID 09/18/18 09/18/18 History terazosin 10 mg PO DAILY 09/18/18 09/18/18 History Physical Exam Vital signs: Vital Signs 09/23/18 00:43 09/23/18 05:30 09/23/18 07:23 Temperature 98.1 F 97.9 F 97.9 F Pulse Rate 76 82 71 Respiratory Rate 20 20 18 Blood Pressure 159/79 H 150/74 H 125/67 Pulse Oximetry 100 100 98 09/23/18 11:34 Temperature 97.5 F L Pulse Rate 74 Respiratory Rate 18 Blood Pressure 128/64 Pulse Oximetry 99 Intake & Output 09/23/18 09/23/18 09/24/18 06:59 18:59 06:59 Intake Total 480 / 480 Balance 480 / 480 Intake: Oral 480 / 480 Other: # Voids 2 1 Narrative: GENERAL: NAD, AAOx3 SKIN: Warm and dry. HEAD: Atraumatic. Normocephalic. EYES: Pupils equal and round. No scleral icterus. No injection or drainage. ENT: No nasal bleeding or discharge. Mucous membranes pink and moist. NECK: Trachea midline. No JVD. CARDIOVASCULAR: Regular rate and rhythm. RESPIRATORY: No accessory muscle use. Clear to auscultation. Breath sounds equal bilaterally. GASTROINTESTINAL: Abdomen soft, non-tender, nondistended. Hepatic and splenic margins not palpable. MUSCULOSKELETAL: Extremities without clubbing, cyanosis. Trace edema. No obvious deformities. NEUROLOGICAL: Awake and alert. No obvious cranial nerve deficits. Motor grossly within normal limits. Five out of 5 muscle strength in the arms and legs. Normal speech. PSYCHIATRIC: Appropriate mood and affect; insight and judgment normal. Results 09/19/18 03:10 09/19/18 03:10 Intake and Output 09/23/18 09/23/18 09/24/18 14:59 22:59 06:59 Intake Total 480 / 480 Balance 480 / 480 Intake: Oral 480 / 480 Other: # Voids 1 Assessment and Plan - Assessment (1) Accelerated hypertension Code(s): I10 - Essential (primary) hypertension Status: Acute (2) History of CVA (cerebrovascular accident) Code(s): Z86.73 - Personal history of transient ischemic attack (TIA), and cerebral infarction without residual deficits Status: Acute (3) SAH (subarachnoid hemorrhage) Code(s): I60.9 - Nontraumatic subarachnoid hemorrhage, unspecified Status: Acute - Plan 1) SAH ASA/Plavix stopped Elevated blood pressure controlled 2) Accelerated HTN Blood pressure now stable 3) Hx of CVA ASA/Plavix stopped [place] to be HTN/DM at the time 4) Cardiovascularly stable for discharge
== END 2018-09-23 14:52 | disposition home or self-care (01) | DRG 304 ==
LOC: NEPD 19:13 → NEDA 23:32 → N03 09-19 01:15 → N05 09-20 17:50
PROVIDERS: ADMIT Family Medicine; ATTEND Family Medicine
CPT/HCPCS: 70450; 70544; 70546; 70553; 80048; 80053; 82948; 82962; 83036; 83735; 84100; 84484; 85025; 85610; 85730; 87640; 87641; 90774; 90784; 93005; 93306; 93880; 95819; 96374; 97162; 99291; A9585; C8952; J1815; J7030; J7050